=== PATIENT | female | born 1965 | race Caucasian/White ===

== ENCOUNTER 2020-08-12 08:09 | Emergency (ER) | payer BC, SELFPAY ==
--- NOTE | 2020-08-12 08:15 | RT.EKG_ITS ---
APPROVED REPORT Exam: Resting ECG Patient Location: E HR:84 bpm ECG Measurements Heart Rate 84 AXIS KS 145 P 75 QRSd 77 QRS 12 QT 366 T 70 QTc 433 Conclusion Sinus rhythm...normal P axis, V-rate 60- 99 I have reviewed and interpreted ECG and agree with software generated interpretation.
[2020-08-12 08:19] VITALS: BP 110/80; PULSE 107; RESP 16; TEMP 36.6; O2SAT 98
--- NOTE | 2020-08-12 08:30 | DI.CT_ITS ---
EXAM: CT ABDOMEN PELVIS W CLINICAL HISTORY: abdominal pain, vomiting, nausea TECHNIQUE: Imaging Protocol: Axial computed tomography images with coronal and sagittal reformatted images were created and reviewed CONTRAST MATERIAL: Intravenous: Omnipaque 350 Contrast volume:100 mL Oral: No COMPARISON: No exams were available for comparison FINDINGS: ABDOMEN: Lung Bases: Normal where visualized. Small hiatal hernia. Liver: Normal density. No measurable mass. Portal, Superior Mesenteric, and Splenic Veins: Unremarkable. Gallbladder and Biliary Tract: No radiodense calculus or dilation. Pancreas: Normal density, no abnormal calcifications or inflammatory process. Spleen: Normal. Adrenals: No masses seen. Kidneys: Normal size, contour and axis. No radiodense stones or obstructive uropathy. No masses seen. Abdominal Aorta: Abdominal portion non-dilated. Mild atherosclerosis. Bowel: No obstruction or bowel wall thickening. No appendicitis. Diverticulosis throughout the colon but no evidence of acute diverticulitis. Peritoneal Cavity: No ascites, collection or mesenteric inflammatory response. No free air. Lymph Nodes: Within normal limits. Bones: Within normal limits for the patient's age. Soft Tissues: Unremarkable. PELVIS: Bladder: Symmetric distention, no gross wall thickening. Reproductive Organs: The uterus is enlarged and heterogeneous with multiple masses including some of which are calcified consistent with fibroid uterus. Lymph Nodes: Within normal limits. Bones: Within normal limits for the patient's age. IMPRESSION: 1. No acute abdominal or pelvic process. 2. Enlarged fibroid uterus. 3. Colonic diverticulosis but no evidence of acute diverticulitis. 4. Results of this exam have been verbally communicated with provider. RADIATION DOSE DELIVERED: 1,221.29mGy.cm Total DLP DATA REPOSITORY: All CT scans at this facility are submitted to the National Radiology Data Registry (NRDR) Dose Index Registry (DIR) with the [employer] (A[employer]). RADIATION OPTIMIZATION: All CT scans at this facility use at least one of these dose optimization te chniques: automated exposure control; mA and/or kV adjustment per patient size (includes targeted exa ms where dose is matched to clinical indication); or iterative reconstruction.
--- NOTE | 2020-08-12 08:30 | NUR.NOTE ---
Nursing Note: Referral given to Care Management to get a PCP to establish care. Katey Mcclulough
--- NOTE | 2020-08-12 08:43 | ED.GENADUL_ITS ---
Discharge Plan Disposition Patient Disposition: HOME Condition: Good Discharge Details Clinical Impression: Nausea & vomiting Primary Care Provider: None,None ED Provider: Phylicia Francisco Home Meds and New Rx's Prescriptions: New omeprazole magnesium [Prilosec OTC] 20 mg tablet,delayed release (DR/EC) 20 mg PO DAILY Qty: 60 RF: 0 ondansetron HCl [Zofran] 4 mg tablet 4 mg PO Q8H Qty: 14 RF: 0 promethazine 25 mg suppository 25 mg [place] Q4H Qty: 12 RF: 0 Discharge Instructions Instructions: Acute Nausea and Vomiting (ED) Additional Instructions: Take Zofran as needed for nausea and vomiting at You may try taking a Phenergan suppository if your symptoms are unrelieved with Zofran orally Take Prilosec daily if helps with your symptoms, I have given you a 30-day supply Please establish care with primary care physician, we have placed you on a referral try to stay away from caffeine, fatty, and spicy foods Please return earlier should you have new or worsening complaints Medical Decision Making Patient is alert and oriented, she did have a CT scan per radiology does not show acute abnormality Her diagnostic labs do not show acute pathology Feeling symptomatically improved able to tolerate p.o. She was placed on care management list for follow-up with primary care physician She started on Prilosec, Zofran, and Phenergan suppository should she need additional management We talked about diet and return precautions She may need outpatient endoscopy and GI consultation at the discretion of her provider At this time she is stable for discharge home, she is alert, oriented, of decisional capacity Lipase within normal limits, no evidence of acute cholecystitis on CT scan or labs suspicious for this etiology Differential Diagnosis Differential Diagnosis: Pancreatitis, cholecystitis, electrolyte abnormality, ulcer Medical Records Medical records reviewed: Yes I reviewed the patient's medical records. Lab Data Lab results reviewed: Yes I reviewed the patient's lab results. HPI This 55-year-old female presents with reports of food induced nausea and vomiting intermittently for the past several months. She states that is intermittent and typically occurs in bouts. She denies any blood in vomitus or stool. She does not have associated diarrhea. Her stool is normally formed and brown. 1 episode of vomiting this morning. 15 episodes of vomiting last evening reportedly. She denies any associated abdominal pain, fever, chills. She denies any weight loss or night sweats. She does not smoke, drink alcohol on a regular basis, or take any prescribed medications. She has recently relocated from [place]. She was not evaluated for the symptoms while she was in [place]. She denies cough or shortness of breath. She denies any chance of as she does have menopausal. She denies any prior abdominal surgeries. Patient also reports that she suffered nasal bone fractures while in [place] and saw plastic surgeon but they elected not to operate until she had healing. She is not able to breathe through her nose secondary to a deviated septum and is requesting that we supply a referral for ENT. She denies any difficulty swallowing. General Date/Time Provider Initiated Documentation: 08/12/20 08:15 . Related Data Home Medications Medication Instructions Recorded Confirmed omeprazole magnesium [Prilosec OTC] 20 mg PO DAILY #60 tab 08/12/20 ondansetron HCl [Zofran] 4 mg PO Q8H #14 tab 08/12/20 promethazine 25 mg OH Q4H #12 ea 08/12/20 Previous Rx's Medication Instructions Recorded omeprazole magnesium [Prilosec OTC] 20 mg PO DAILY #60 tab 08/12/20 ondansetron HCl [Zofran] 4 mg PO Q8H #14 tab 08/12/20 promethazine 25 mg OH Q4H #12 ea 08/12/20 Allergies Allergy/AdvReac Type Severity Reaction Status Date / Time cephalexin Allergy Skin Rash Unverified 08/12/20 08:25 nitrofurantoin Allergy Skin Rash Unverified 08/12/20 08:25 [From Macrobid] General Stated Complaint: Nausea/Vomit/Diar FRANCIS: 3 Review of Systems Narrative: Review of systems negative x7 aside from where indicated in HPI PFSH Social History Smoking/Tobacco Use Status: Never Smoking risk assessment performed?: Yes Alcohol Intake: current Alcohol Intake frequency: holidays/special occasions only Drug use: Occasionally Substance use type: marijuana Do you feel safe at home: Yes Do you feel safe in your relationship?: Yes Exam Const General: healthy appearing and comfortable HENMT Other: moist mucous membranes Eyes Pupils: PERRL Resp Effort & Inspection: normal respiratory effort Cardio Rate: regular rate GI Inspection: normal to inspection Other: Nontender abdominal exam, no CVA tenderness Skin General skin exam: no rashes or lesions noted Neuro General: patient alert Course Vital Signs Vital signs: Vital Signs Temperature 36.6 C 08/12/20 08:19 Pulse 107 H 08/12/20 08:19 Respiratory Rate 16 08/12/20 08:19 Blood Pressure 110/80 08/12/20 08:19 Pulse Oximetry 98 08/12/20 08:19 Temperature 36.6 C 08/12/20 08:19 Temperature Source Temporal Artery Scan 08/12/20 08:19 Pulse 107 H 08/12/20 08:19 Respiratory Rate 16 08/12/20 08:19 Respiratory Effort Non-Labored 08/12/20 08:23 Blood Pressure 110/80 08/12/20 08:19 Blood Pressure Position Sitting 08/12/20 08:19 Pulse Oximetry 98 08/12/20 08:19 Oxygen Delivery Method Room Air 08/12/20 08:19 Oxygen Flow Rate 0 08/12/20 08:19 Pain Level 0 08/12/20 08:19
[2020-08-12] MEDS: Normal Saline 1,000 ML 1000 ML IV (08:54)
[2020-08-12] MEDS: Ondansetron 4 MG/2 ML VIAL IVP ×2 (08:54→10:43)
[2020-08-12 08:55] LABS: Abs Immature Grans 0.01 10^3/uL (0.0-0.06); Absolute Basophil Count 0.03 10^3/uL (0.0-0.2); Absolute Eosinophil Count 0.07 10^3/uL (0.0-0.7); Absolute Lymphocyte Count 2.17 10^3/uL (1.2-3.4); Absolute Monocyte Count 0.49 10^3/uL (0.1-0.8); Absolute Neutrophil Count 3.63 10^3/uL (1.2-6.7); Basophils % 0.5; Eosinophils % 1.1; HGB 15.6 g/dL (11.2-15.7); Immature Grans % 0.2; Lymphocytes % 33.9; MCH 30.2 pg (27.0-33.0); MCHC 34.7 % (32.0-36.0); MCV 87.2 fL (80-95); MPV 9.5 fL (8.0-11.0); Monocytes % 7.7; Neutrophils % 56.6; Nucleated RBC 0 %; Platelet Count 233 10^3/uL (130-400); RBC 5.16 10^6/uL (3.93-5.22); RDW 12.2 % (11.7-14.6); RDW-SD 39.3 fL
[2020-08-12 09:09] LABS: ALT 37 U/L (14-59); AST 23 U/L (15-37); Albumin 4.2 g/dL (3.4-5.0); Alkaline Phosphatase 63 U/L (46-116); Anion Gap 10.2 mmol/L (3-11); BUN 18 mg/dL (7-18); Bilirubin, Total 0.5 mg/dL (0.2-1.0); CO2 27.8 mmol/L (21.0-32.0); CREATININE 0.8 mg/dL (0.55-1.02); Calcium 9.7 mg/dL (8.5-10.1); Chloride 103 mmol/L (98-107); Glucose 94 mg/dL (74-106); Lipase 96 U/L (73-393); Magnesium 2.1 mg/dL (1.8-2.4); Potassium 3.9 mmol/L (3.5-5.1); Sodium 141 mmol/L (136-145); Total Protein 8.7 g/dL (6.4-8.2)
[2020-08-12] MEDS: Omnipaque 350 MG/ML 100 ML BTL IJ (10:07)
[2020-08-12] MEDS: Normal Saline Flush 10 ML SYR IVP (10:08)
[2020-08-12 10:58] VITALS: BP 129/70; PULSE 83; RESP 20; TEMP 36.4; O2SAT 100
--- NOTE | 2020-08-12 19:29 | PDOC.ERCMPRO ---
- If Service Date Differs Date of service: 08/12/20 Time of Service: 19:29 Care Management Progress Note Amy is seen in the ED for abdominal pain. At the request of ED provider, NARGIS coordinates a referral to aPlmira Green of [facility], on-call provider, to assist Amy in obtaining a follow up appointment and in establishing care with a PCP.
== END 2020-08-12 11:10 | disposition home or self-care (01) ==
PROVIDERS: Emergency Provider Physician Assistant
DX: R11.2 Nausea with vomiting, unspecified (principal)
CPT/HCPCS: 36415; 80053; 83690; 93005; 96361; 96374; 96376; 99285; 74177; 83735; 85025; 93010; 99284; J2405; J3490

== ENCOUNTER 2020-08-20 18:24 | Outpatient (REF) | payer BC, SELFPAY ==
[2020-08-20 20:22] LABS: Hemoglobin A1C 5.2 % (<5.7)
[2020-08-20 20:31] LABS: TSH (W/Ref FT4) 3.49 uIU/mL (0.36-3.74)
== END 2020-08-20 18:25 | disposition home or self-care (01) ==
LOC: NCHCN 18:24
PROVIDERS: Visit Provider Physician Assistant Medical
DX: R11.2 Nausea with vomiting, unspecified (principal)
CPT/HCPCS: 83036; 84443

== ENCOUNTER 2020-09-10 03:22 | Outpatient (CLI) | payer BC, SELFPAY ==
--- NOTE | 2020-09-10 | DI.MAMMO_ITS ---
EXAM: MG MAMMO SCREENING CLINICAL HISTORY: SCREENING, [facility],Z00.00 TECHNIQUE: Bilateral full field digital CC and MLO mammographic images were obtained with 3D tomosyn thesis and utilizing computer aided detection (CAD). COMPARISON: Available for comparison. FINDINGS: Masses/Architectural Distortion: None seen. Microcalcifications: No suspicious pleomorphic-type are seen. Skin Thickening/Nipple Retraction: None. IMPRESSION: 1. No significant interval change with no specific features of malignancy noted. 2. Unless there is more urgent need, screening mammography is recommended, as per [employer] guidelines. BI-RADS Category 1 - Negative Breast Density - Category C - Heterogeneously dense Breast density category C or D implies that the patient has dense breast tissue. Dense breast tissue is very common and is not abnormal but dense breast tissue can make it harder to find cancer on a ma mmogram. Also, dense breast tissue may increase their breast cancer risk. This information about the result of the mammogram report was provided to the patient to raise their awareness. Use this report when you speak with the patient about their risks for breast cancer, which includes their family hist ory. At that time, you may recommend for more screening tests (Ultrasound or MRI) as they might be us eful based on their risk. A negative radiographic report should not delay biopsy if a dominant or clinically suspicious mass is present. Up to ten percent of cancers are not identified on mammography. A negative report may reinforce clinical impression. Adenosis and dense breasts may obscure an underlying neoplasm. False positive reports average 6 to 10%. Patient will receive a letter notifying them of these results.
== END 2020-09-10 03:42 ==
PROVIDERS: PCP Physician Assistant Medical; Visit Provider Physician Assistant Medical
DX: Z12.31 Encounter for screening mammogram for malignant neoplasm of breast (principal); Z00.00 Encounter for general adult medical examination without abnormal findings
CPT/HCPCS: 77063; 77067

== ENCOUNTER 2020-10-11 03:06 | Outpatient (CLI) | payer BC, SELFPAY ==
[2020-10-11 10:23] LABS: Source Nasal/Nares
[2020-10-11 12:28] LABS: COVID-19 PCR Negative (Negative)
== END 2020-10-11 03:07 | disposition home or self-care (01) ==
LOC: LBO 03:07
PROVIDERS: PCP Physician Assistant Medical; Visit Provider Surgery
DX: Z20.822 Contact with and (suspected) exposure to COVID-19 (principal); Z01.818 Encounter for other preprocedural examination
CPT/HCPCS: 87635

== ENCOUNTER 2020-10-13 11:25 | Day surgery (SDC) | payer BC, SELFPAY ==
[2020-10-13] VITALS (11 sets, daily range): BP systolic 118–150; BP diastolic 44–85; PULSE 45–75; RESP 14–18; TEMP 35.9–36.2; O2SAT 95–100; BMI 29.9
--- NOTE | 2020-10-13 06:53 | ROE_ITS ---
Date of service: 10/13/20 Time of Service: 15:26 Operative Note Operative Note DATE OF PROCEDURE: 10/13/20 PRE-OP DIAGNOSIS: Acalculous Cholecystitis POST-OP DIAGNOSIS: same PROCEDURE: Laparoscopic Cholecystectomy SURGEON: Christi Grajeda ARTIFICIAL INTELLIGENCE SPECIALIST: Caitlyn Rizvi ANESTHESIA TYPE: Local By Surgeon and General LMA/ETT Refer to Anesthesia Record ESTIMATED BLOOD LOSS: 50 PATHOLOGY: other (Gallbladder and contecnts) COMPLICATIONS: None Patient was transported to: PACU Patient's condition: stable Indications: Ms. Denton is a pleasant 55-year-old female who for the last few months has been having increasing nausea, vomiting and periodic episodes of right upper quadrant pain which radiate to her back and right shoulder. She underwent EGD which was unremarkable. CT scan which were read as normal although on my review I do think that she may have some sludge in there. HIDA scan was then ordered which was normal with an ejection fracture of 68%. She is scheduled for an ultrasound tomorrow. I discussed with the patient that clinically she probably has a calculus cholecystitis. I would like her to still go ahead with her ultrasound but I think giving her symptoms and her weight loss her gallbladder does need to be removed. I did tell her that if her ultrasound is negative I cannot guarantee that removing her gallbladder will take care of her symptoms. She understands this and still would like to proceed with laparoscopic cholecystectomy. We discussed the surgery in detail using a pamphlet. I went over the risks and complications. We reviewed reasons to go from laparoscopic to open cholecystectomy. We reviewed reasons for which I would admit her after surgery. If all goes well the plan is for her to go home. We also reviewed Covid testing prior to the procedure as well as quarantining test and her surgery. She works from home so this will not be an issue. The patient also mentions kulwinder t she has quite a bit of postoperative nausea. I have prescribed scopolamine patch. I have asked her to place this behind her ear the night before surgery to hopefully help with postoperative nausea. The patient will be having her second Covid vaccine this coming Sunday. Surgery is scheduled for the following Sunday. I did discuss this with anesthesia and they do not see a reason that she cannot have her surgery after her second vaccine. Risks, benefits, complications were reviewed with the patient in the office. Complications include but are not limited to bleeding, infection, injury to stomach, small bowel and large bowel, injury to the pancreas, injury to the common bile duct necessitating drainage and referral to tertiary center for repair, bile leak, adverse reactions to the medications, complications of intubation including a sore throat or injury to the uvula, PR, stroke and even . Questions were entertained and answered to her satisfaction and she wished to proceed. No guarantees were given or implied. COVID-19 testing explained to the patient. Reason for test reviewed. Quarantine per state requirements reviewed with patient. Patient understands and agrees to testing. Proceed with laparoscopic cholecystectomy, possible open, possible intraoperative cholangiogram Findings: Normal appearing Gallbladder Procedure Description: After informed consent was obtained the patient was brought to the operating room, placed in a supine position and monitors were a pplied. SCDs were applied to her lower extremities and she was placed under general anesthesia and intubated without difficulty. Her abdomen was then prepped and draped in a sterile fashion using ChloraPrep. At this point a timeout was done and the patient's name, date of , procedure type, allergies to medications, metal in her body, antibiotic and DVT prophylaxis, and fire risk was assessed. At this point Exparel mixed 50/50 with 0.25% Bupivocaine was injected just above the umbilicus into the dermis and subcutaneous tissue. A 5 mm incision was made with an 11 blade. The skin next to the incision was grasped with penetrating towel clamps and while pulling up on the skin a 5 mm port was placed under direct visualization. The abdomen was insuflated and then 3 more ports were placed. A 12 mm port was placed in the subxiphoid area and two 5 mm ports were placed in the right upper quadrant. The liver was inspected and looked normal. The patient's bed was then turned to the left and her head was brought up. The gallbladder was grasped at the body and pushed towards the right shoulder, this allowed me to visualize the neck of the gallbladder. The neck was grasped and pulled towards the right flank and down allowing me to visualize the lymph node. Using a [place] dissector with cautery the lymph node was gently dissected away from the tissues and the fatty tissue was also dissected away. The cystic duct was identified it was normal in size. The duct was dissected 360 degrees using the [place] dissector in order for me to visualize its entrance into the gallbladder. Liver was noted behind it. There were no other structures right behind. Critical view was achieved. 3 clips were placed one proximal and 2 distal and the cystic duct was cut. The cystic artery was then identified and dissected 360 degrees. It was located just medial to the cystic duct. It was visualized going into the gallbladder. Once dissected 3 more clips were placed one proximal and 2 distal and the artery was cut. Using the hook dissector the gallbladder was then dissected away from the liver bed and placed into an Endo Catch bag and pulled through the 12 mm port site. The 12 mm port was placed back into the abdomen under direct visualization. The liver bed was inspected no bleeding was noted. The abdomen was then irrigated with a liter of normal saline until the effluent was clear. Once all the fluid was suctioned out, the 12 mm and the 2 right upper quadrant ports were removed under direct visualization and no bleeding was noted from the fascia. The abdo men was deflated completely and lastly the umbilical port was removed. The skin was cleaned and the incisions were closed with 4-0 Vicryl. The skin was dried and mastasol and steri-strips were applied over the closed incisions. 4x4 and tegaderm were then applied over the steri-strips. Needle, instrument and sponge counts were correct at the end of the case. At this point the patient was woken up, extubated and taken back to recovery in stable condition. There were no immediate complications.
--- NOTE | 2020-10-13 06:55 | PDOC.DSDIS_ITS ---
Discharge Plan Disposition Patient Disposition: HOME Condition: Good Discharge Details Reason For Visit: Acalculous cholecystitis Attending Provider: Christi Grajeda Primary Care Provider: Thierry Jane Home Meds and New Rx's Prescriptions: Continued scopolamine base 1 mg over 3 days patch 3 day 1 patch transdermal Q3D PRN (Reason: nausea and vomiting) Qty: 1 RF: 0 omeprazole magnesium [Prilosec OTC] 20 mg tablet,delayed release (DR/EC) 20 mg PO DAILY Qty: 60 RF: 0 ondansetron HCl [Zofran] 4 mg tablet 4 mg PO Q8H Qty: 14 RF: 0 promethazine 25 mg suppository 25 mg [place] Q4H Qty: 12 RF: 0 Discharge Instructions Instructions: Laparoscopic Cholecystectomy (DC) Additional Instructions: Activity at Home after surgery: 1. Make sure you walk outside at least 4 times per day 2. You should be able to climb a flight of stairs 3. No driving while in pain or taking pain medications 4. No strenuous activity or heavy lifting for 2 weeks (laparoscopic surgery) Diet, Nutrition, & wound healin. Avoid alcohol until after you are recovered from your surgery 2. Make sure to eat plenty of lean protein (meat, fish, eggs, cottage cheese, beans) 3. Eat a variety of fruits and vegetables. Eat plenty of high fiber f oods to avoid constipation. 4. Drink plenty of liquids to stay hydrated and avoid constipation Pain Medications: 1. Tylenol 650mg every 6 hours as needed and Ibuprofen 600 mg every 6 hours as needed. You may alternate between the 2 medications every 3 hours 2. If a narcotic has been prescribed take as directed only for breakthrough pain For Constipation: 1. Take Milk of Magnesia or MiraLax as needed for constipation Other: 1. You may shower daily. Do not scrub the incisions 2. Do not soak the incisions for 1 week 3. You may alternate ice and heat as needed for pain and swelling Wound Care: 1. Keep the incisions clean and dry Please call our office if you develop: 1. Fevers >101.5 2. Nausea or Vomiting 3. Worsening pain 4. Redness and thick discharge from the wounds If after hours please call the Hospital at and ask to speak to the on-call surgeon Referrals: Christi Grajeda MD [ [facility] STAFF PHYSICIAN] - 10/26/20 11:00 am Activity:: Activity as Tolerated Shower/Bathe:: 24 hours Diet:: As Tolerated Discharge Orders Discharge Orders: Discharge Order (Routine); Ordered 10/13/20 Ordered By: Christi Grajeda
[2020-10-13] MEDS: Lactated Ringers 1,000 ML 80 ML IV (12:12)
[2020-10-13] MEDS: Celecoxib 200 MG CAP PO (12:23)
[2020-10-13] MEDS: Acetaminophen 500 MG TAB 1000 MG PO (12:23)
--- NOTE | 2020-10-13 12:45 | W.ANESPRE ---
General Info Date of Service Date Performed: 10/13/20 Height: 5 ft 7 in Weight: 86.6 kg Body Mass Index (BMI): 29.9 Surgical Procedure: Operation Date: 10/13/20 13:25 Proposed Procedures Side Surgeon p Cholecystectomy Laparoscopic Christi Grajeda MD Meds Allergies and Home Medications Allergies Allergy/AdvReac Type Severity Reaction Status Date / Time cephalexin Allergy Severe Skin Rash Unverified 10/13/20 11:45 nitrofurantoin Allergy Severe Skin Rash Unverified 10/13/20 11:45 [From Macrobid] Home Medication Medication Instructions Recorded omeprazole magnesium [Prilosec OTC] 20 mg PO DAILY #60 tab 08/12/20 ondansetron HCl [Zofran] 4 mg PO Q8H #14 tab 08/12/20 promethazine 25 mg VT Q4H #12 ea 08/12/20 scopolamine base 1 mg over 3 days 1 patch TRANSDERMAL Q3D PRN #1 ea 10/05/20 transdermal patch Current Visit Medications: Current Medications Generic Name Dose Route Start Last Admin Trade Name Elq PRN Reason Stop Dose Admin Acetaminophen 1,000 mg 10/13/20 06:00 10/13/20 12:23 Acetaminophen 500 Mg Tab PO 10/13/20 16:00 1,000 mg PREOP VIANNEY Administration Celecoxib 200 mg 10/13/20 06:00 10/13/20 12:23 Celecoxib 200 Mg Cap PO 10/13/20 16:00 200 mg PREOP VIANNEY Administration Ephedrine Sulfate 0 mg 10/13/20 12:41 Ephedrine 50 Mg/Ml Vial IVP DIRECTED PRN Fentanyl 0 mcg 10/13/20 12:41 Fentanyl 100 Mcg/2 Ml Vial IVP DIRECTED PRN Hydromorphone HCl 0 mg 10/13/20 12:41 Hydromorphone 2 Mg/Ml Vial IVP DIRECTED PRN Ringer's Solution 1,000 mls @ 80 mls/hr 10/13/20 06:00 10/13/20 12:12 IV 11/11/20 23:59 80 mls/hr INFUSION VIANNEY Administration Ampicillin Sodium/Sulbactam 100 mls @ 200 mls/hr 10/13/20 06:00 Sodium 3 gm/ Sodium Chloride IVPB 10/13/20 16:00 PREOP VIANNEY Ondansetron HCl 4 mg/ Sodium 52 mls @ 200 mls/hr 10/13/20 06:56 Chloride IVPB Q6H PRN PRN Promethazine HCl 6.25 mg/ 50.25 mls @ 200 mls/hr 10/13/20 12:41 Sodium Chloride IVPB DIRECTED PRN Nausea IV Miscellaneous Supplies 1 each 10/13/20 06:00 Iv Access IV 11/11/20 23:59 DIRECTED VIANNEY Naloxone HCl 0 mg 10/13/20 12:41 Naloxone 0.4 Mg/Ml Vial IVP PRN PRN Oxycodone HCl 5 mg 10/13/20 06:56 Oxycodone 5 Mg Tab PO Q3H PRN PRN Pain Sodium Chloride 0 ml 10/13/20 06:00 Normal Saline Flush 10 Ml Syr IV 11/11/20 23:59 PRN PRN Sodium Chloride 0 ml 10/13/20 06:00 Normal Saline 10 Ml Vial IJ 11/11/20 23:59 DIRECTED PRN Sterile Water 0 ml 10/13/20 06:00 Water,Injection,Sterile 10 Ml Vial IJ 11/11/20 23:59 DIRECTED PRN PFSH Active Problems Active Problems: Problem Status Onset Code Acalculous cholecystitis K81.9 RUQ pain R10.11 Nausea & vomiting R11.2 Medical History Medical History Deviated nasal septum Diverticulosis Hypertrophy of inferior nasal turbinate ZO (obstructive sleep apnea) Uterine fibroid Medical History Comments:: No CPAP Surgical History Surgical History H/O esophagogastroduodenoscopy History of arthroscopy of both knees History of bilateral breast reduction surgery History of total right knee replacement Tobacco Smoking/Tobacco Use Status: Never Alcohol Alcohol Intake: current Alcohol intake frequency: holidays/special occasions only Substance Use Substance use: Occasionally Substance use type: marijuana Details: last used 3 months Vital Signs and Lab Results Vital Signs Most Recent Vital Signs in EMR: Most Recent Vital Signs Temp Pulse Resp BP Pulse Ox 36.1 C L 75 18 124/79 95 10/13/20 11:47 10/13/20 11:47 10/13/20 11:47 10/13/20 11:47 10/13/20 11:47 Lab Results Blood Type / Crossmatch: No Data to Display Complete Blood Count: White Blood Count 6.40 10^3/uL (4.4-10.8) 08/12/20 08:48 08/12/20 Red Blood Count 5.16 10^6/uL (3.93-5.22) 08/12/20 08:48 08/12/20 Hemoglobin 15.6 g/dL (11.2-15.7) 08/12/20 08:48 08/12/20 Hematocrit 45.0 % (36.0-46.0) 08/12/20 08:48 08/12/20 Platelet Count 233 10^3/uL (130-400) 08/12/20 08:48 08/12/20 Complete Metabolic Panel: Sodium Level 141 mmol/L (136-145) 08/12/20 08:48 08/12/20 Potassium Level 3.9 mmol/L (3.5-5.1) 08/12/20 08:48 08/12/20 Chloride Level 103 mmol/L (98-107) 08/12/20 08:48 08/12/20 Carbon Dioxide Level 27.8 mmol/L (21.0-32.0) 08/12/20 08:48 08/12/20 Blood Urea Nitrogen 18 mg/dL (7-18) 08/12/20 08:48 08/12/20 Creatinine 0.8 mg/dL (0.55-1.02) 08/12/20 08:48 08/12/20 Magnesium Level 2.1 mg/dL (1.8-2.4) 08/12/20 08:48 08/12/20 Calcium Level 9.7 mg/dL (8.5-10.1) 08/12/20 08:48 08/12/20 Albumin 4.2 g/dL (3.4-5.0) 08/12/20 08:48 08/12/20 Glucose Level 94 mg/dL (74-106) 08/12/20 08:48 08/12/20 Hemoglobin A1c 5.2 % (<5.7) 08/20/20 12:30 08/20/20 Liver Function Panel: Alanine Aminotransferase (ALT/SGPT) 37 U/L (14-59) 08/12/20 08:48 08/12/20 Aspartate Amino Transf (AST/SGOT) 23 U/L (15-37) 08/12/20 08:48 08/12/20 Coagulation Panel: No Data to Display Cardiac Panel: No Data to Display Arterial Blood Gas: No Data to Display Venous Blood Gas: No Data to Display Pancreas Panel: Lipase 96 U/L (73-393) 08/12/20 08:48 08/12/20 Thyroid Panel: Thyroid Stimulating Hormone (TSH) 3.49 uIU/mL (0.36-3.74) 08/20/20 12:30 08/20/20 Infectious Disease: Coronavirus (COVID-19)(PCR) Negative (Negative) 10/11/20 08:40 10/11/20 Coronavirus 2019 Source Nasal/nares 10/11/20 08:40 10/11/20 Blood Cultures: No Data to Display Toxicology Panel: No Data to Display Imaging and Studies Imaging and Studies EKG Summary:: 08/12/20 SR Anesthesia Assessment and Plan Anesthesia History Personal History: PONV (Scopolamine patch ordered by physician, applied last night) Family History: No Family History of Anesthesia Complications Exercise Tolerance Exercise Tolerance: Metabolic Equivalents>4 Cardiac & Pulmonary Exam Cardiac Exam: Normal S1/S2 Heart Sounds Pulmonary Exam: Clear Bilateral Breath Sounds Airway Exam Known Difficult Airway: No Mallampati Class: 2 Mouth Opening: Normal (> 3cm) Thyromental Distance: Less than 3 cm Neck Range of Motion: Full ROM Neck Circumference: Normal Teeth Condition: Normal Dentition ASA Classification ASA Score: ASA 2 Emergency Case?: No NPO Status NPO Status: NPO Clears >2 hours, Solids >8 hours Anesthesia Plan Anesthesia Technique: General Anesthesia Airway Planned: Endotracheal Tube Monitors Used: Standard Monitors
[2020-10-13] MEDS: AMPICILLIN/SULBACTAM 3 GM in Normal Saline 100 ML IVPB (13:22)
--- NOTE | 2020-10-13 13:46 | GB_PTH ---
PATIENT: Amy Velasquez LOC: [facility] U#:[id number] AGE/SX: 55/F ROOM: RE10/13/[address]: Christi Grajeda MD : 1965 BED: DIS: 10/13/2020 SPEC #: [id number] RECD: 10/13/20 16:07 STATUS: RADHIKA REMicha #: [id number] MONE: 10/13/20 13:[address]: Christi Grajeda DEPT: Surgical Specimen RECD BY: Phylicia Zamora ENTERED: 10/13/20 16:08 SP TYPE: GB OTHR DR: Thierry Jane Tissues: 1 - GALLBLADDER Procedures: GROSS AND MICRO LEVEL 3 Comments: [id number]
[2020-10-13] MEDS: Bupivacaine 0.25% Pres-Free 30 ML VIAL (14:05)
--- NOTE | 2020-10-13 16:36 | W.ANESPOSTOP ---
Postoperative Evaluation Date, Time and Location Date Performed: 10/13/20 Time Performed: 16:36 Patient Location: Day Surgery Unit Vital Signs Most Recent Imported Vital Signs: Most Recent Vital Signs Temp Pulse Resp BP Pulse Ox 35.9 C L 55 L 16 131/67 98 10/13/20 16:00 10/13/20 16:00 10/13/20 16:00 10/13/20 16:00 10/13/20 16:00 Pain Score Most Recent Pain Score: Most Recent Pain Score Pain Level 1 10/13/20 16:00 Assessment Mental Status: Awake (Alert & Oriented to Patient Baseline) Airway and Respiratory Function: Patent airway with normal (patient baseline) respiratory exam Cardiovascular Function: Hemodynamically Stable Hydration Status: Adequately Hydrated Nausea & Vomiting: No Nausea or Vomiting Pain: Pt. Denies Any Pain Peripheral Nerve Block: Patient did not receive a nerve block
== END 2020-10-13 17:38 | disposition home or self-care (01) ==
LOC: SUR 11:25
PROVIDERS: PCP Physician Assistant Medical; Visit Provider Surgery
PROC: 0FT44ZZ Resection of Gallbladder, Percutaneous Endoscopic Approach (ICD-10-PCS; CPT 47562; principal; 2020-10-13 13:15)
DX: K80.10 Calculus of gallbladder with chronic cholecystitis without obstruction (principal); K21.9 Gastro-esophageal reflux disease without esophagitis
CPT/HCPCS: 47562; 81025; 88304; J0295; J1100; J2001; J2405; J2704

== ENCOUNTER 2020-10-18 09:42 | Outpatient (REF) | payer BC, SELFPAY ==
[2020-10-18 15:35] LABS: Abs Immature Grans 0.01 10^3/uL (0.0-0.06); Absolute Basophil Count 0.03 10^3/uL (0.0-0.2); Absolute Eosinophil Count 0.15 10^3/uL (0.0-0.7); Absolute Lymphocyte Count 1.75 10^3/uL (1.2-3.4); Absolute Monocyte Count 0.45 10^3/uL (0.1-0.8); Absolute Neutrophil Count 3.03 10^3/uL (1.2-6.7); Basophils % 0.6; Eosinophils % 2.8; HCT 44.3 % (36.0-46.0); HGB 14.9 g/dL (11.2-15.7); Immature Grans % 0.2; Lymphocytes % 32.3; MCH 29.6 pg (27.0-33.0); MCHC 33.6 % (32.0-36.0); MCV 87.9 fL (80-95); MPV 10.5 fL (8.0-11.0); Monocytes % 8.3; Neutrophils % 55.8; Nucleated RBC 0 %; Platelet Count 232 10^3/uL (130-400); RBC 5.04 10^6/uL (3.93-5.22); RDW 12.3 % (11.7-14.6); RDW-SD 39.8 fL; WBC 5.42 10^3/uL (4.4-10.8)
[2020-10-18 16:15] LABS: ALT 76 U/L (14-59); AST 45 U/L (15-37); Albumin 4.2 g/dL (3.4-5.0); Alkaline Phosphatase 64 U/L (46-116); Anion Gap 9.6 mmol/L (3-11); BUN 17 mg/dL (7-18); Bilirubin, Total 0.6 mg/dL (0.2-1.0); CO2 29.4 mmol/L (21.0-32.0); CREATININE 0.7 mg/dL (0.55-1.02); Calcium 9.6 mg/dL (8.5-10.1); Chloride 106 mmol/L (98-107); Glucose 99 mg/dL (74-106); Potassium 4.8 mmol/L (3.5-5.1); Sodium 145 mmol/L (136-145); Total Protein 7.8 g/dL (6.4-8.2)
== END 2020-10-18 09:43 | disposition home or self-care (01) ==
LOC: NCHCN 09:42
PROVIDERS: PCP Physician Assistant Medical; Visit Provider Physician Assistant Medical
DX: R42 Dizziness and giddiness (principal)
CPT/HCPCS: 80053; 85025

== ENCOUNTER 2020-10-20 14:50 | Outpatient (REF) | payer BC, SELFPAY | END 2020-10-20 14:51 | disposition home or self-care (01) | LOC: NCHCN 14:50 | PROVIDERS: PCP Physician Assistant Medical; Visit Provider Physician Assistant Medical | DX: R30.9 Painful micturition, unspecified (principal) | CPT/HCPCS: 87077; 87086; 87186 ==

== ENCOUNTER 2020-10-25 11:53 | Outpatient (REF) | payer BC, SELFPAY ==
[2020-10-25 16:57] LABS: ALT 45 U/L (14-59); AST 31 U/L (15-37); Albumin 4.4 g/dL (3.4-5.0); Alkaline Phosphatase 65 U/L (46-116); Bilirubin, Direct 0.1 mg/dL (0.0-0.2); Bilirubin, Total 0.4 mg/dL (0.2-1.0); Total Protein 8.2 g/dL (6.4-8.2)
== END 2020-10-25 11:54 | disposition home or self-care (01) ==
LOC: NCHCN 11:53
PROVIDERS: PCP Physician Assistant Medical; Visit Provider Physician Assistant Medical
DX: R79.89 Other specified abnormal findings of blood chemistry (principal)
CPT/HCPCS: 80076

== ENCOUNTER 2020-10-28 09:26 | Emergency (ER) | payer BC, SELFPAY ==
[2020-10-28 09:29] VITALS: BP 125/79; PULSE 105; RESP 16; TEMP 36.8; O2SAT 98
--- NOTE | 2020-10-28 09:47 | W.ED.GENAD ---
Discharge Plan Disposition Patient Disposition: HOME Condition: Stable Discharge Details Clinical Impression: Dizziness, Nausea and vomiting, Acute effusion of right ear Primary Care Provider: Thierry Jane ED Provider: Kayla Lovell Home Meds and New Rx's Prescriptions: New prednisone 20 mg tablet 40 mg PO DAILY 3 Days Qty: 6 RF: 0 meclizine 12.5 mg tablet 12.5 mg PO TID PRN (Reason: dizziness) Qty: 14 RF: 0 Continued omeprazole magnesium [Prilosec OTC] 20 mg tablet,delayed release (DR/EC) 20 mg PO DAILY Qty: 60 RF: 0 ondansetron HCl [Zofran] 4 mg tablet 4 mg PO Q8H Qty: 14 RF: 0 promethazine 25 mg suppository 25 mg NH Q4H Qty: 12 RF: 0 Discharge Instructions Instructions: Ear Infection (ED), Acute Nausea and Vomiting (ED), Dizziness (ED) Additional Instructions: Drink plenty of fluids and get plenty of rest. Alternate tylenol and motrin as needed and directed for pain. Finish your Bactrim that you are taking for your urinary tract infection. You can take either your Zofran or your Phenergan that you have at home for nausea and vomiting. Your prescriptions have been sent electronically to your pharmacy. Call the pharmacy to make sure your prescriptions are ready before pickup. Take the prescriptions as directed. Call Dr. Patel's office today to have a discussion regarding your planned upcoming surgery and to follow-up for your right ear effusion. Call your pet supplies salesperson at [facility] to schedule a follow-up appointment for reevaluation. Also call Dr. Grajeda's office to schedule a follow-up appointment for reevaluation after your gallbladder surgery. Return immediately to the emergency department if you develop any worsening or new concerning symptoms. Referrals: Brendan Patel DO [OSTEOPATHIC DOCTOR] - Christi Grajeda MD [ [facility] STAFF PHYSICIAN] - Discharge Data Discharge Physician: Kayla Lovell Medical Decision Making 55-year-old female who is 2 weeks status post lap nicki for acalculus cholecystitis presents for dizziness, nausea and vomiting since last night. She has had chronic dizziness and vomiting for the past 7 months. She states she has been doing well since her surgery until last night. Denies fever. She is hemodynamically stable and appears comfortable and nontoxic. She does state that she had severe right ear pain last week. She does have fluid behind her right TM but no erythema. She has no complaint of headache, focal deficits, and history and presentation does not appear consistent with CVA, brain tumor or ACS. As she reports she had a CT brain in June in [place] which was negative, and her presentation has not significantly changed since then, do not see an indication for repeat head and imaging. She is also on Bactrim for UTI. She denies any complaint of abdominal pain but has minimal epigastric tenderness. She has no right upper quadrant tenderness. I discussed at length with patient that her symptom presentation could be related to antibiotics or ear effusion, or multifactorial. An IV, screening labs, urinalysis ordered on arrival. Labs reviewed. White blood cell count 6. Normal electrolytes, liver function and bilirubin. Normal lipase. As patient has no complaint of abdominal pain, is nontoxic appearing and with normal white blood cell count and no significant abdominal tenderness, do not see indication for CT imaging. Case discussed with surgery on-call Dr. Nicole who recommended a right upper quadrant ultrasound to assess the gallbladder bed and a GI cocktail. Patient was also given fluids, meclizine and Zofran. Will reassess. Gallbladder ultrasound negative for acute findings. Patient reassessed and she feels better. She was able to drink fluids and eat crackers without any vomiting. Patient states she feels good to go home. She has a prescription for Phenergan at home but is requesting some to go. She has an appointment for a deviated septum repair next week but is planning to reschedule this. We will send prescriptions for meclizine and prednisone to her pharmacy. Advised to call Nancy LEE and Dr. Grajeda for follow-up. Usual and customary return precautions given prior to discharge. Medical Records Medical records reviewed: Yes I reviewed the patient's medical records. Imaging Data Radiologic Study: Radiologist's impression: US ABDOMEN LIMITED CLINICAL HISTORY:? RUQ, assess gallbladder bed, 2 wks s/p lap nicki TECHNIQUE:? Ultrasound abdomen performed using standard protocol. COMPARISON:? US US ABDOMEN from 10/06/2020 FINDINGS: There is no ascites evident. LIVER: There are no hepatic lesions evident nor dilatation of intrahepatic ducts. GALLBLADDER/BILIARY: Gallbladder surgically absent (2 weeks ago). The common hepatic duct isnot dilated, measuring 3-4mm at the level of mily hepatis.? There is no obvious fluid collection in the gallbladder fossa. PANCREAS: There is no evidence of pancreatic mass nor dilatation of the pancreatic duct. RIGHT KIDNEY:No evidence of solid mass, calculus, nor hydronephrosis. No cortical cysts evident. ABDOMINAL AORTA AND IVC: Visualized portions exhibit normal caliber. IMPRESSION: 1.? No evidence of abnormal fluid collection in the gallbladder fossa in this patient who has had recent cholecystectomy, approximately 2 weeks ago. 2.? No other significant ultrasound findings in the right upper quadrant. 3.? No dilatation biliary tree.? Pancreas appears unremarkable. Lab Data Lab results reviewed: Yes I reviewed the patient's lab results. Labs: Laboratory Tests Range/Units 10/28/20 10/28/20 10/28/20 09:50 09:50 10:55 WBC (4.4-10.8) 10^3/uL 6.25 RBC (3.93-5.22) 10^6/uL 4.92 Hgb (11.2-15.7) g/dL 14.5 Hct (36.0-46.0) % 43.2 MCV (80-95) fL 87.8 MCH (27.0-33.0) pg 29.5 MCHC (32.0-36.0) % 33.6 RDW (11.7-14.6) % 12.6 Plt Count (130-400) 10^3/uL 233 MPV (8.0-11.0) fL 10.1 Immature Gran % 0.2 Neutrophils % 56.0 Lymphocytes % 34.4 Monocytes % 7.2 Eosinophils % 1.6 Basophils % 0.6 Nucleated RBC % % 0 Absolute Neutrophils (1.2-6.7) 10^3/uL 3.50 Absolute Lymphocytes (1.2-3.4) 10^3/uL 2.15 Absolute Monocytes (0.1-0.8) 10^3/uL 0.45 Absolute Eosinophils (0.0-0.7) 10^3/uL 0.10 Absolute Basophils (0.0-0.2) 10^3/uL 0.04 Sodium (136-145) mmol/L 143 Potassium (3.5-5.1) mmol/L 4.2 Chloride (98-107) mmol/L 105 Carbon Dioxide (21.0-32.0) mmol/L 31.3 Anion Gap (3-11) mmol/L 6.7 BUN (7-18) mg/dL 18 Creatinine (0.55-1.02) mg/dL 1.1 H Estimated GFR/1.73 m2 (mL/min/1.73m2) 51.38 Glucose (74-106) mg/dL 93 Calcium (8.5-10.1) mg/dL 9.7 Total Bilirubin (0.2-1.0) mg/dL 0.5 AST (15-37) U/L 25 ALT (14-59) U/L 43 Alkaline Phosphatase (46-116) U/L 67 Total Protein (6.4-8.2) g/dL 8.5 H Albumin (3.4-5.0) g/dL 4.3 Lipase (73-393) U/L 95 Urine Color (Yellow) Yellow Urine Clarity (Clear) Clear Urine pH (5-8) 7.0 Ur Specific [place] (1.005-1.025) 1.020 Urine Protein (Negative) mg/dL Negative Urine Ketones (Negative) mg/dL Negative Urine Blood (Negative) Trace-intact H Urine Nitrite (Negative) Negative Urine Bilirubin (Negative) Negative Urine Urobilinogen (Up TO 0.2) EU/dL 0.2 Ur Leukocyte Esterase (Negative) Negative Urine RBC (0-2) HPF 0-2 Urine WBC (0-5) HPF Negative Ur Epithelial Cells (Negative) HPF Few Urine Crystals (Negative) HPF Negative Urine Bacteria (Negative) HPF Few Urine Casts (Negative) LPF Negative Urine Mucus (Negative) Trace Urine Other (Negative) Negative Ur Culture Indicated? No Urine Glucose (Negative) mg/dL Negative HPI General Mode of arrival: ambulatory. Date/Time Provider Initiated Documentation: 10/28/20 09:29. Limitations to Documentation: no limitations. Information obtained by: patient. HPI Narrative: Patient is a 55-year-old female who is 2 weeks status post lap nicki presents for dizziness and vomiting since last night. Patient states she has had chronic dizziness and vomiting since April which has had extensive work-up and which ultimately led to finding gallbladder sludge and acalculous cholecystitis leading to her cholecystectomy. Patient states she had been doing well up until last night when she had multiple episodes of severe vomiting. She states the vomitus consisted of bile. She has been having normal bowel movements and denies any melena or hematochezia. She was able to take sips of water this morning. She last vomited at 10 PM last night. She states she is on her second regimen of Bactrim for a UTI. She states her primary care doctor put her on Bactrim for hematuria and suprapubic pressure but states when she followed up with them she was still noted to have blood in her urine and they started her on the second regimen of Bactrim. She denies any similar reaction to Bactrim in the past. She states she has been slowly introducing foods back into her diet over the last couple weeks but states she did not eat anything out of ordinary yesterday. She states her dizziness sometimes feels like a lightheaded sensation but is more often a spinning sensation. She states she has had a spinning sensation since last evening that is worse with head movement. She states last week she had sharp right-sided ear pain and is unsure if she has fluid in her right ear. She states she broke her nose in June and had a CT of her face and head which was negative. She was told that she has a deviated septum which is scheduled for repair with Dr. Patel next week. She denies fever, headache, chest pain, shortness of breath, abdominal pain, dysuria, urinary frequency. Related Data Home Medications Medication Instructions Recorded Confirmed omeprazole magnesium [Prilosec OTC] 20 mg PO DAILY #60 tab 08/12/20 10/28/20 ondansetron HCl [Zofran] 4 mg PO Q8H #14 tab 08/12/20 10/28/20 promethazine 25 mg NH Q4H #12 ea 08/12/20 10/26/20 meclizine 12.5 mg PO TID PRN #14 tab 10/28/20 prednisone 40 mg PO DAILY 3 Days #6 tab 10/28/20 Previous Rx's Medication Instructions Recorded omeprazole magnesium [Prilosec OTC] 20 mg PO DAILY #60 tab 08/12/20 ondansetron HCl [Zofran] 4 mg PO Q8H #14 tab 08/12/20 promethazine 25 mg NH Q4H #12 ea 08/12/20 meclizine 12.5 mg PO TID PRN #14 tab 10/28/20 prednisone 40 mg PO DAILY 3 Days #6 tab 10/28/20 Allergies Allergy/AdvReac Type Severity Reaction Status Date / Time cephalexin Allergy Severe Skin Rash Unverified 10/28/20 09:37 nitrofurantoin Allergy Severe Skin Rash Unverified 10/28/20 09:37 [From Macrobid] General Stated Complaint: Nausea/Vomit/Diar FRANCIS: 3 Review of Systems All systems reviewed & are unremarkable except as noted in HPI and below Constitutional Constitutional: Reports as per HPI, Denies chills and Denies fever(s) Eyes Eyes: Denies blurry vision ENT Ears, Nose, Mouth, and Throat: Reports dizziness, Denies sore throat and Denies throat swelling Cardiovascular Cardiovascular: Denies chest pain and Denies dyspnea Respiratory Respiratory: Denies cough and Denies dyspnea Gastrointestinal Gastrointestinal: Denies abdominal pain, Denies diarrhea and Reports vomiting Genitourinary Genitourinary: Denies hematuria and Denies dysuria Musculoskeletal Musculoskeletal: Denies back pain and Denies numbness Integumentary/Breasts Skin/Breast: Denies lesions and Denies rash Neurologic Neurologic: Reports dizziness, Denies localized weakness and Denies numbness Allergic/Immunologic Allergic/Immunologic: Denies throat swelling [facility] Medical History Deviated nasal septum Diverticulosis Hypertrophy of inferior nasal turbinate ZO (obstructive sleep apnea) Uterine fibroid Surgical History H/O esophagogastroduodenoscopy History of arthroscopy of both knees History of bilateral breast reduction surgery History of total right knee replacement Social History Smoking/Tobacco Use Status: Never Smoking risk assessment performed?: Yes Alcohol Intake: current Alcohol Intake frequency: holidays/special occasions only Drug use: Occasionally Substance use type: marijuana Details: last used 4 months Current gender identity: female Do you feel safe at home: Yes Do you feel safe in your relationship?: Yes Exam Const General: cooperative, healthy appearing and no acute distress HENMT Head: normal to inspection Ears: hearing grossly normal bilaterally, external ears normal and TM abnormal with fluid behind the TM on the right; not erythematous Face and sinus: normal facial exam Mouth: oral mucosae normal Eyes General: appearance normal, both eyes and all related structures Pupils: PERRL EOM: EOM intact bilaterally Neck Neck: normal visual inspection and No submandibular swelling Lymphatic: no lymphadenopathy noted Chest Chest: normal inspection of the chest and no tenderness Resp Effort & Inspection: normal respiratory effort and able to speak in complete sentences Auscultation: clear to auscultation bilaterally Cardio Rate: regular rate Rhythm: regular rhythm GI Inspection: normal to inspection Palpation: soft, not firm, not rigid and tender in the epigastrum (minimal w/ deep palpation) Auscultation: normal bowel sounds Back/Spine/Pelvis Thoracic/Lumbar Spine: thoracic and lumbar spine normal to inspection Pelvis: no pain with anterior-posterior compression Skin General skin exam: no rashes or lesions noted Neuro General: patient alert, patient awake, patient oriented x3, gait normal, moves all extremities, no meningeal signs and no focal motor deficits Cranial Nerves: CN's II-XI intact bilaterally Cognition: normal cognition Speech: speech normal Motor: muscle tone normal throughout and strength 5/5 throughout Sensory Exam: no sensory deficits noted Extrem General: normal to inspection, full ROM, capillary refill normal, no calf tenderness bilaterally and no edema Psych Appearance: grossly normal Mental Status: mental status grossly normal Speech and Movement: speech and movement normal Affect: normal affect Course Vital Signs Vital signs: Vital Signs Temperature 98.2 F 10/28/20 09:29 Pulse 105 H 10/28/20 09:29 Respiratory Rate 16 10/28/20 09:29 Blood Pressure 125/79 10/28/20 09:29 Pulse Oximetry 98 10/28/20 09:29 Temperature 98.2 F 10/28/20 09:29 Temperature Source Skin 10/28/20 09:29 Pulse 105 H 10/28/20 09:29 Respiratory Rate 16 10/28/20 09:29 Respiratory Effort 10/28/20 09:40 Blood Pressure 125/79 10/28/20 09:29 Blood Pressure Position Sitting 10/28/20 09:29 Pulse Oximetry 98 10/28/20 09:29 Oxygen Delivery Method Room Air 10/28/20 09:29 Oxygen Flow Rate 0 10/28/20 09:29 Pain Level 0 10/28/20 09:29
[2020-10-28] MEDS: Normal Saline Flush 10 ML SYR IVP (09:50)
[2020-10-28] MEDS: Normal Saline 500 ML IV ×2 (09:55→10:40)
[2020-10-28 10:14] LABS: Abs Immature Grans 0.01 10^3/uL (0.0-0.06); Absolute Basophil Count 0.04 10^3/uL (0.0-0.2); Absolute Lymphocyte Count 2.15 10^3/uL (1.2-3.4); Absolute Monocyte Count 0.45 10^3/uL (0.1-0.8); Basophils % 0.6; Eosinophils % 1.6; HCT 43.2 % (36.0-46.0); HGB 14.5 g/dL (11.2-15.7); Immature Grans % 0.2; Lymphocytes % 34.4; MCH 29.5 pg (27.0-33.0); MCHC 33.6 % (32.0-36.0); MCV 87.8 fL (80-95); MPV 10.1 fL (8.0-11.0); Monocytes % 7.2; Nucleated RBC 0 %; Platelet Count 233 10^3/uL (130-400); RBC 4.92 10^6/uL (3.93-5.22); RDW 12.6 % (11.7-14.6); RDW-SD 40.1 fL; WBC 6.25 10^3/uL (4.4-10.8)
[2020-10-28 10:19] LABS: ALT 43 U/L (14-59); AST 25 U/L (15-37); Albumin 4.3 g/dL (3.4-5.0); Alkaline Phosphatase 67 U/L (46-116); Anion Gap 6.7 mmol/L (3-11); BUN 18 mg/dL (7-18); Bilirubin, Total 0.5 mg/dL (0.2-1.0); CO2 31.3 mmol/L (21.0-32.0); CREATININE 1.1 mg/dL (0.55-1.02); Calcium 9.7 mg/dL (8.5-10.1); Chloride 105 mmol/L (98-107); Estimated GFR 51.38 (mL/min/1.73m2); Glucose 93 mg/dL (74-106); Lipase 95 U/L (73-393); Potassium 4.2 mmol/L (3.5-5.1); Sodium 143 mmol/L (136-145); Total Protein 8.5 g/dL (6.4-8.2)
--- NOTE | 2020-10-28 10:30 | DI.US_ITS ---
Exam(s) US ABDOMEN LIMITED EXAM: US ABDOMEN LIMITED CLINICAL HISTORY: RUQ, assess gallbladder bed, 2 wks s/p lap nicki TECHNIQUE: Ultrasound abdomen performed using standard protocol. COMPARISON: US US ABDOMEN from 10/06/2020 FINDINGS: There is no ascites evident. LIVER: There are no hepatic lesions evident nor dilatation of intrahepatic ducts. GALLBLADDER/BILIARY: Gallbladder surgically absent (2 weeks ago). The common hepatic duct isnot dilated, measuring 3-4mm at the level of mily hepatis. There is no ob vious fluid collection in the gallbladder fossa. PANCREAS: There is no evidence of pancreatic mass nor dilatation of the pancreatic duct. RIGHT KIDNEY:No evidence of solid mass, calculus, nor hydronephrosis. No cortical cysts evident. ABDOMINAL AORTA AND IVC: Visualized portions exhibit normal caliber. IMPRESSION: 1. No evidence of abnormal fluid collection in the gallbladder fossa in this patient who has had rec ent cholecystectomy, approximately 2 weeks ago. 2. No other significant ultrasound findings in the right upper quadrant. 3. No dilatation biliary tree. Pancreas appears unremarkable. DATA REPOSITORY:
[2020-10-28] MEDS: Ondansetron 4 MG/2 ML VIAL IVP (10:32)
[2020-10-28] MEDS: predniSONE 20 MG TAB 60 MG PO (10:32)
[2020-10-28] MEDS: Meclizine 25 MG TAB PO (10:32)
--- NOTE | 2020-10-28 11:00 | RT.EKG_ITS ---
APPROVED REPORT Exam: Resting ECG Reason for Exam: dizziness Patient Location: E HR:65 bpm ECG Measurements Heart Rate 65 AXIS AZ 156 P 74 QRSd 82 QRS 28 QT 414 T 61 QTc 433 Conclusion Sinus rhythm...normal P axis, V-rate 60- 99 No STEMI. I have reviewed and interpreted ECG and agree with software generated interpretation.
[2020-10-28 11:01] LABS: Bilirubin Negative (Negative); Blood Trace-intact (Negative); Clarity Clear (Clear); Glucose Negative (Negative); Ketones Negative (Negative); Leukocyte Esterase Negative (Negative); Nitrite Negative (Negative); Urobilinogen 0.2 EU/dL (Up TO 0.2)
[2020-10-28 11:14] LABS: Bacteria Few HPF (Negative); C & S Indicated? No; Casts Negative LPF (Negative); Crystals Negative HPF (Negative); Epithelial Cells Few HPF (Negative); Mucus Trace (Negative); Other Cells Negative (Negative); RBC 0-2 HPF (0-2); WBC Negative HPF (0-5)
[2020-10-28 12:44] VITALS: BP 119/69; PULSE 68; RESP 16; TEMP 36.7; O2SAT 97
--- NOTE | 2020-10-28 12:53 | NUR.NOTE ---
PO challenge with crackers and demetra-campbell Nursing Note:
[2020-10-28 13:07] VITALS: BP 119/69; PULSE 68; RESP 16; TEMP 36.7; O2SAT 97
== END 2020-10-28 13:15 | disposition home or self-care (01) ==
PROVIDERS: Emergency Provider Physician Assistant; PCP Physician Assistant Medical
DX: R11.2 Nausea with vomiting, unspecified (principal); R42 Dizziness and giddiness; H92.01 Otalgia, right ear
CPT/HCPCS: 36415; 80053; 83690; 93005; 96361; 96374; 99284; 76705; 81003; 81015; 85025; 93010; 99283; J2405; J7512

== ENCOUNTER 2020-12-10 19:03 | Outpatient (REF) | payer BC, SELFPAY | END 2020-12-10 19:04 | disposition home or self-care (01) | LOC: LBN 19:03 | PROVIDERS: PCP Physician Assistant Medical; Visit Provider Physician Assistant Medical | DX: R30.0 Dysuria (principal) | CPT/HCPCS: 87086 ==

== ENCOUNTER 2021-03-07 21:28 | Outpatient (CLI) | payer BC, SELFPAY ==
--- NOTE | 2021-03-07 | DI.RAD_ITS ---
Exam(s) XR KNEE LT 3V AP,LAT,NASRA EXAM: XR KNEE LT 3V AP,LAT,NASRA CLINICAL HISTORY: LT KNEE PAIN M25.562. TECHNIQUE: 2D digital imaging was performed. COMPARISON: No exams were available for comparison FINDINGS: There is moderate narrowing of the medial femoral tibial joint space and periarticular spurring. Spu rring is also seen from the tibial spines and intercondylar notch as well as the patellofemoral joint . No joint effusion is visible. There is some irregularity of the contour lateral femoral condyle w hich has a chronic appearance. This could be related to previous trauma or secondary to degenerative changes. IMPRESSION: Degenerative changes, greatest of the medial femoral tibial joint. DATA REPOSITORY: RADIATION DOSE DELIVERED:
--- NOTE | 2021-03-07 | DI.RAD_ITS ---
Exam(s) XR HIP LT COMPLETE AP PELVIS EXAM: XR HIP LT COMPLETE AP PELVIS INDICATION: LT HIP PAIN M25.562. COMPARISON: CT CT ABDOMEN PELVIS W from 08/12/2020 TECHNIQUE: 2D digital imaging was performed. FINDINGS: Hip joint spaces are well maintained. There is bilateral acetabular spurring. There is mild spurrin g from the margins of the femoral heads. The SI joints and pubic symphysis are unremarkable. There is a small calcified uterine fibroid. IMPRESSION: Mild degenerative changes of both hips. DATA REPOSITORY: RADIATION DOSE DELIVERED:
== END 2021-03-07 21:48 ==
PROVIDERS: PCP Physician Assistant Medical; Visit Provider Physician Assistant Medical
DX: M25.562 Pain in left knee (principal); M17.12 Unilateral primary osteoarthritis, left knee; M25.552 Pain in left hip; M16.12 Unilateral primary osteoarthritis, left hip
CPT/HCPCS: 73562; 73502

== ENCOUNTER 2021-06-06 17:28 | Outpatient (REF) | payer OTHER, SELFPAY ==
[2021-06-06 19:51] LABS: HCT 42.7 % (36.0-46.0); HGB 14.3 g/dL (11.2-15.7); MCH 29.9 pg (27.0-33.0); MCHC 33.5 % (32.0-36.0); MCV 89.1 fL (80-95); MPV 10.6 fL (8.0-11.0); Platelet Count 239 10^3/uL (130-400); RBC 4.79 10^6/uL (3.93-5.22); RDW 12.4 % (11.7-14.6); RDW-SD 40.7 fL; WBC 6.65 10^3/uL (4.4-10.8)
[2021-06-06 19:52] LABS: Anion Gap 5.3 mmol/L (3-11); BUN 21 mg/dL (7-18); CO2 32.7 mmol/L (21.0-32.0); CREATININE 0.9 mg/dL (0.55-1.02); Chloride 106 mmol/L (98-107); Glucose 92 mg/dL (74-106); Potassium 4.2 mmol/L (3.5-5.1); Sodium 144 mmol/L (136-145)
== END 2021-06-06 17:29 | disposition home or self-care (01) ==
LOC: NCHCN 17:28
PROVIDERS: PCP Physician Assistant Medical; Visit Provider Nurse Practitioner Family
DX: E86.0 Dehydration (principal); R11.2 Nausea with vomiting, unspecified
CPT/HCPCS: 80048; 85027

== ENCOUNTER 2021-07-21 10:03 | Outpatient (CLI) | payer OTHER, SELFPAY ==
--- NOTE | 2021-07-21 09:34 | DI.RAD_ITS ---
Exam(s) XR KNEE RT 3V AP,LAT,NASRA EXAM: XR KNEE RT 3V AP,LAT,NASRA CLINICAL HISTORY: pain in knee. TECHNIQUE: 2D digital imaging was performed of the right knee. Three views obtained. AP, lateral an d merchant's views were obtained. COMPARISON: No previous for comparison. FINDINGS: BONES: No acute fracture is present. No bony destructive lesion is seen. JOINTS: The knee is normally aligned. The patient has a right total knee replacement. No lucencies a re seen in or about the orthopedic hardware to suggest loosening or infection. SOFT TISSUE: Normal. IMPRESSION: Stable right TKR. DATA REPOSITORY: RADIATION DOSE DELIVERED:
== END 2021-07-21 10:04 | disposition home or self-care (01) ==
LOC: DIORS 10:03
PROVIDERS: PCP Physician Assistant Medical; Referring Provider Physician Assistant Medical; Visit Provider Physician Assistant Surgical
DX: Z96.651 Presence of right artificial knee joint (principal); M25.561 Pain in right knee
CPT/HCPCS: 73562

== ENCOUNTER 2021-08-19 00:24 | Outpatient (CLI) | payer OTHER, SELFPAY ==
--- NOTE | 2021-08-19 06:15 | DI.NM_ITS ---
Exam(s) NM BONE SCAN 3 PHASE EXAM: SC BONE SCAN 3 PHASE CLINICAL HISTORY: ? LOOSENING,h/o total knee, pain. COMPARISON: CR XR KNEE LT 3V AP,LAT,NASRA from 03/07/2021 NM NM GASTRIC EMPTYING from 08/10/2021 TECHNIQUE: Three-phase bone scan was performed with attention to the knees following intravenous inf usion of 25.0 millicuries of technetium 99 labeled methylene diphosphonate. Whole body imaging shows mildly increased uptake adjacent to femoral and tibial components of right k nee prosthesis. No abnormality on flow or blood pool imaging. Planar images of the knees show mildly increased uptake adjacent to the components of the right TKR w hich is within the normal expected range of appearance. A couple of areas of mildly increased uptake are seen in the feet and in the left knee consistent wit h degenerative change. No other significant findings. FINDINGS: No evidence of loosening of right knee prosthesis on this study. IMPRESSION: DATA REPOSITORY:
== END 2021-08-19 00:44 ==
PROVIDERS: PCP Physician Assistant Medical; Visit Provider Student in an Organized Health Care Education/Training Program
DX: Z96.651 Presence of right artificial knee joint (principal)
CPT/HCPCS: 78315

== ENCOUNTER 2021-08-19 01:41 | Outpatient (CLI) | payer OTHER, SELFPAY ==
[2021-08-19 08:28] LABS: ESR 9 mm/hr (0-30)
[2021-08-19 17:36] LABS: CRP, High Sensitivity 2.16 mg/L (See Note)
== END 2021-08-19 01:42 | disposition home or self-care (01) ==
LOC: LBO 01:41
PROVIDERS: PCP Physician Assistant Medical; Visit Provider Student in an Organized Health Care Education/Training Program
DX: T84.84XA Pain due to internal orthopedic prosthetic devices, implants and grafts, initial encounter (principal); Z96.651 Presence of right artificial knee joint
CPT/HCPCS: 85652; 86141

== ENCOUNTER 2021-08-22 02:48 | Outpatient (CLI) | payer OTHER, SELFPAY ==
[2021-08-22 11:23] LABS: Source Nasal/Nares
[2021-08-22 16:09] LABS: COVID-19 PCR Negative (Negative)
== END 2021-08-22 02:49 | disposition home or self-care (01) ==
PROVIDERS: PCP Physician Assistant Medical; Visit Provider Student in an Organized Health Care Education/Training Program
DX: Z20.822 Contact with and (suspected) exposure to COVID-19 (principal); Z01.818 Encounter for other preprocedural examination
CPT/HCPCS: 87635

== ENCOUNTER 2021-08-23 07:19 | Day surgery (SDC) | payer OTHER, SELFPAY ==
[2021-08-23 07:29] VITALS: BP 112/74; PULSE 81; RESP 16; TEMP 35.8; O2SAT 98
--- NOTE | 2021-08-23 07:31 | W.PREOPHP ---
Documented by User: CORINE Green 08/23/21 07:37 Assessment and Plan Assessment and plan (1) Arthrofibrosis of total knee arthroplasty: Status: Acute Assessment and plan: Arthroscopic synovectomy of right knee in the setting of a total knee replacement. Details of surgery were discussed with patient as well as risks and pertinent anatomy. All questions were answered. (2) Trochanteric bursitis of left hip: Status: Acute History of Present Illness History of Present Illness Chief Complaint: Right total knee pain/stiffness Narrative: Amy is in today for an arthroscopic synovectomy of the right knee in the setting of a total knee replacement. She has a history of a right total knee replacement in 2014, and feels as though she is always had some increased stiffness in the right knee. She relates an arthroscopic synovectomy in the past, and states that she thought that this procedure helped. Since then, however, she feels as though her symptoms have returned. Despite trying physical therapy, she has not been able to overcome the lack of range of motion in her right knee. She has become frustrated with her knee because of the lack of motion. Because she has failed conservative treatment including physical therapy, Dr. Ontiveros does offer a repeat arthroscopic synovectomy of the right total knee replacement, and she is anxious to proceed. Pertinent Surgical Information Patient denies history of hypertension, CVA, AL, angina, asthma, COPD, renal or liver disorders, hepatitis, bleeding disorders, diabetes, immune or thyroid disorders. No complications from anesthesia. Review of Systems Constitutional Constitutional: Denies fever(s) ENT Ears, Nose, Mouth, and Throat: Denies dizziness and Denies sore throat Cardiovascular Cardiovascular: Denies chest pain, Denies palpitations and Denies dyspnea Respiratory Respiratory: Denies cough and Denies dyspnea Gastrointestinal Gastrointestinal: Denies abdominal pain, Denies melena, Denies hematochezia, Denies diarrhea, Denies nausea and Denies vomiting Genitourinary Genitourinary: Denies hematuria and Denies dysuria Neurologic Neurologic: Denies dizziness Endocrine Endocrine: Denies palpitations PFSH All Active Problems (Updated 08/23/21 @ 09:21 by Sekou Ontiveros MD) Trochanteric bursitis of left hip (Acute) Nausea & vomiting (Acute) Deviated nasal septum (Acute) Hypertrophy of inferior nasal turbinate (Acute) RUQ pain (Acute) Acalculous cholecystitis (Acute) Dizziness (Acute) Nausea and vomiting (Acute) Acute effusion of right ear (Acute) Sensorineural hearing loss of both ears (Acute) Osteoarthritis of left knee (Acute) Femoroacetabular impingement of left hip (Acute) Arthritis of left hip (Acute) Arthrofibrosis of total knee arthroplasty (Acute) RIGHT Medical History (Updated 08/23/21 @ 09:21 by Sekou Ontiveros MD) Cyclical vomiting Diverticulosis ZO (obstructive sleep apnea) PONV (postoperative nausea and vomiting) Uterine fibroid Surgical History H/O esophagogastroduodenoscopy History of arthroscopy of both knees History of bilateral breast reduction surgery History of nasal surgery History of total right knee replacement Social History Smoking/Tobacco Use Status: Never Smoking risk assessment performed?: Yes Alcohol Intake: current Alcohol Intake frequency: holidays/special occasions only Drug use: Never Substance use type: marijuana Current gender identity: female Do you feel safe at home: Yes Do you feel safe in your relationship?: Yes Meds Allergies and Home Medications Allergies Allergy/AdvReac Type Severity Reaction Status Date / Time cephalexin Allergy Severe Skin Rash Unverified 08/23/21 07:40 nitrofurantoin Allergy Severe Skin Rash Unverified 08/23/21 07:40 [From Macrobid] Penicillins Allergy Intermediate rash Verified 08/23/21 07:40 Home Medications Medication Instructions Recorded Confirmed Type ondansetron HCl 4 mg tablet 4 mg PO Q8H #14 tab 08/12/20 08/23/21 Rx (Zofran) meclizine 12.5 mg tablet 12.5 mg PO TID PRN #14 tab 10/28/20 08/23/21 Rx promethazine 12.5 mg tablet 12.5 mg PO Q6H PRN #30 tab 11/02/20 08/23/21 Rx omeprazole 20 mg capsule,delayed 40 mg PO DAILY cap 04/26/21 08/23/21 History release Exam Const General: cooperative and no acute distress Orientation: alert and awake HENCA Head: normocephalic and atraumatic Eyes Conjunctivae: conjunctivae normal Sclera: sclerae normal Resp Effort & Inspection: normal respiratory effort Auscultation: clear to auscultation bilaterally and no wheezes Cardio Rate: regular rate Rhythm: regular rhythm Heart Sounds: S1 normal, S2 normal and no murmurs Documented by User: Sekou Ontiveros MD 08/23/21 09:22 Assessment and Plan Assessment and plan (1) Arthrofibrosis of total knee arthroplasty: Status: Acute Assessment and plan: Amy has had continued restricted motion about the right knee. She feels like a rubber band is pulling with the knee. Although prognosis is limited, I offered an arthroscopic synovectomy. I am hopeful this will relieve some of the pressure that she feels with range of motion of the knee. She is scheduled for return to physical therapy on a daily basis. I once again reviewed the surgery with her. I discussed the risk of the procedure to include bleeding, infection, pain, continued stiffness, need for repeat procedures, blood clot. Despite these risk, she elects to proceed. (2) Trochanteric bursitis of left hip: Status: Acute Assessment and plan: Plan for left hip injection today in the operating room. If she has good success with this injection we will proceed with the right side in the office at her follow-up. I discussed the injection with her and she agrees to proceed. History of Present Illness Narrative: Amy is in today for an arthroscopic synovectomy of the right knee in the setting of a total knee replacement. She has a history of a right total knee replacement in 2014, and feels as though she is always had some increased stiffness in the right knee. She relates an arthroscopic synovectomy in the past, and states that she thought that this procedure helped. Since then, however, she feels as though her symptoms have returned. Despite trying physical therapy, she has not been able to overcome the lack of range of motion in her right knee. She has become frustrated with her knee because of the lack of motion. Because she has failed conservative treatment including physical therapy, Dr. Ontiveros does offer a repeat arthroscopic synovectomy of the right total knee replacement, and she is anxious to proceed. She also has continued to have bilateral, left worse than right, lateral hip pain. She has been dealing with trochanter bursitis for some time and continues to be limited by this. She is interested in an injection. [facility] All Active Problems (Updated 08/23/21 @ 09:21 by Sekou Ontiveros MD) Trochanteric bursitis of left hip (Acute) Nausea & vomiting (Acute) Deviated nasal septum (Acute) Hypertrophy of inferior nasal turbinate (Acute) RUQ pain (Acute) Acalculous cholecystitis (Acute) Dizziness (Acute) Nausea and vomiting (Acute) Acute effusion of right ear (Acute) Sensorineural hearing loss of both ears (Acute) Osteoarthritis of left knee (Acute) Femoroacetabular impingement of left hip (Acute) Arthritis of left hip (Acute) Arthrofibrosis of total knee arthroplasty (Acute) RIGHT Medical History (Updated 08/23/21 @ 09:21 by Sekou Ontiveros MD) Cyclical vomiting Diverticulosis ZO (obstructive sleep apnea) PONV (postoperative nausea and vomiting) Uterine fibroid Surgical History H/O esophagogastroduodenoscopy History of arthroscopy of both knees History of bilateral breast reduction surgery History of nasal surgery History of total right knee replacement Social History Smoking/Tobacco Use Status: Never Smoking risk assessment performed?: Yes Alcohol Intake: current Alcohol Intake frequency: holidays/special occasions only Drug use: Never Substance use type: marijuana Current gender identity: female Do you feel safe at home: Yes Do you feel safe in your relationship?: Yes Meds Allergies and Home Medications Allergies Allergy/AdvReac Type Severity Reaction Status Date / Time cephalexin Allergy Severe Skin Rash Unverified 08/23/21 07:40 nitrofurantoin Allergy Severe Skin Rash Unverified 08/23/21 07:40 [From Macrobid] Penicillins Allergy Intermediate rash Verified 08/23/21 07:40 Home Medications Medication Instructions Recorded Confirmed Type ondansetron HCl 4 mg tablet 4 mg PO Q8H #14 tab 08/12/20 08/23/21 Rx (Zofran) meclizine 12.5 mg tablet 12.5 mg PO TID PRN #14 tab 10/28/20 08/23/21 Rx promethazine 12.5 mg tablet 12.5 mg PO Q6H PRN #30 tab 11/02/20 08/23/21 Rx omeprazole 20 mg capsule,delayed 40 mg PO DAILY cap 04/26/21 08/23/21 History release
[2021-08-23] MEDS: Lactated Ringers 1,000 ML 80 ML IV (08:02)
[2021-08-23] MEDS: Celecoxib 200 MG CAP 400 MG PO (08:03)
[2021-08-23] MEDS: Acetaminophen 500 MG TAB 1000 MG PO (08:04)
--- NOTE | 2021-08-23 08:48 | ANES.PREOP_ITS ---
General Info Date of Service Date Performed: 08/23/21 Height: 5 ft 7.5 in Weight: 86.183 kg Body Mass Index (BMI): 29.3 Surgical Procedure: Operation Date: 08/23/21 09:55 Proposed Procedure Side Surgeon p Knee Arthroscopy Synovectomy w/Manipulation Right Sekou Ontiveros MD Meds Allergies and Home Medications Allergies Allergy/AdvReac Type Severity Reaction Status Date / Time cephalexin Allergy Severe Skin Rash Unverified 08/23/21 07:40 nitrofurantoin Allergy Severe Skin Rash Unverified 08/23/21 07:40 [From Macrobid] Penicillins Allergy Intermediate rash Verified 08/23/21 07:40 Home Medication Medication Instructions Recorded ondansetron HCl 4 mg tablet 4 mg PO Q8H #14 tab 08/12/20 (Zofran) meclizine 12.5 mg tablet 12.5 mg PO TID PRN #14 tab 10/28/20 promethazine 12.5 mg tablet 12.5 mg PO Q6H PRN #30 tab 11/02/20 omeprazole 20 mg capsule,delayed 40 mg PO DAILY cap 04/26/21 release Current Visit Medications: Current Medications Generic Name Dose Route Start Last Admin Trade Name Freq PRN Reason Stop Dose Admin Acetaminophen 1,000 mg 08/23/21 06:00 08/23/21 08:04 Acetaminophen 500 Mg Tab PO 08/23/21 16:00 1,000 mg PREOP VIANNEY Administration Celecoxib 400 mg 08/23/21 06:00 08/23/21 08:03 Celecoxib 200 Mg Cap PO 08/23/21 16:00 400 mg PREOP VIANNEY Administration Ringer's Solution 1,000 mls @ 80 mls/hr 08/23/21 06:00 08/23/21 08:02 IV 09/01/21 23:59 80 mls/hr INFUSION VIANNEY Administration Cefazolin Sodium/Dextrose 2 gm in 50 mls @ 100 mls/hr 08/23/21 06:00 Ancef Duplex IVPB 08/23/21 23:59 PREOP VIANNEY IV Miscellaneous Supplies 1 each 08/23/21 06:00 Iv Access IV 09/01/21 23:59 DIRECTED VIANNEY Sodium Chloride 0 ml 08/23/21 06:00 Normal Saline Flush 10 Ml Syr IV 09/01/21 23:59 PRN PRN Sodium Chloride 0 ml 08/23/21 06:00 Normal Saline 10 Ml Vial IJ 09/01/21 23:59 DIRECTED PRN Sterile Water 0 ml 08/23/21 06:00 Water,Injection,Sterile 10 Ml Vial IJ 09/01/21 23:59 DIRECTED PRN PFSH Active Problems Active Problems: Problem Status Onset Code Nausea & vomiting R11.2 Deviated nasal septum J34.2 Hypertrophy of inferior nasal turbinate J34.3 RUQ pain R10.11 Acalculous cholecystitis K81.9 Dizziness R42 Nausea and vomiting R11.2 Acute effusion of right ear H65.191 Sensorineural hearing loss of both ears H90.3 Osteoarthritis of left knee M17.12 Femoroacetabular impingement of left hip M25.852 Arthritis of left hip M16.12 Arthrofibrosis of total knee arthroplasty T84.82XA Medical History Medical History Cyclical vomiting Diverticulosis ZO (obstructive sleep apnea) PONV (postoperative nausea and vomiting) Uterine fibroid Medical History Comments:: No CPAP *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 will take PO Zofran AM of procedure PATIENT REQUESTS ABSOLUTLEY NO NARCOTICS! Surgical History Surgical History H/O esophagogastroduodenoscopy History of arthroscopy of both knees History of bilateral breast reduction surgery History of nasal surgery History of total right knee replacement Tobacco Smoking/Tobacco Use Status: Never Alcohol Alcohol Intake: current Alcohol intake frequency: holidays/special occasions only Substance Use Substance use: Never Substance use type: marijuana Vital Signs and Lab Results Vital Signs Most Recent Vital Signs in EMR: Most Recent Vital Signs Temp Pulse Resp BP Pulse Ox 35.8 C L 81 16 112/74 98 08/23/21 07:29 08/23/21 07:29 08/23/21 07:29 08/23/21 07:29 08/23/21 07:29 Lab Results Blood Type / Crossmatch: No Data to Display Complete Blood Count: No Data to Display Complete Metabolic Panel: No Data to Display Liver Function Panel: No Data to Display Coagulation Panel: No Data to Display Cardiac Panel: No Data to Display Arterial Blood Gas: No Data to Display Venous Blood Gas: No Data to Display Pancreas Panel: No Data to Display Thyroid Panel: No Data to Display Infectious Disease: Coronavirus (COVID-19)(PCR) Negative (Negative) 08/22/21 09:05 08/22/21 Coronavirus 2019 Source Nasal/Nares 08/22/21 09:05 08/22/21 Blood Cultures: No Data to Display Toxicology Panel: No Data to Display Imaging and Studies Imaging and Studies Study information below may be from another EMR and interpreted by another provider. Please see original notes in EMR for more complete details. EKG Summary: Sinus rhythm...normal P axis, V-rate 60- 99 Anesthesia Assessment and Plan Anesthesia History Personal History: PONV Family History: No Family History of Anesthesia Complications Exercise Tolerance Exercise Tolerance: Metabolic Equivalents>4 Pertinent Negatives Pertinent Negatives: No Symptoms of GERD, No Major Cardiovascular Symptoms or Complaints, No Major Pulmonary Symptoms or Complaints and No History of CVA/TIA Cardiac & Pulmonary Exam Cardiac Exam: Normal S1/S2 Heart Sounds Pulmonary Exam: Clear Bilateral Breath Sounds Implantable Cardiac Device Does patient have a Pacemaker or an ICD?: No Airway Exam Known Difficult Airway: No Mallampati Class: 3 Mouth Opening: Narrow (< 3cm) Thyromental Distance: Less than 3 cm Neck Range of Motion: Full ROM Neck Circumference: Normal Teeth Condition: Normal Dentition and Generalized Poor Dentition ASA Classification ASA Score: ASA 2 Emergency Case?: No NPO Status NPO Status: NPO Clears >2 hours, Solids >8 hours Anesthesia Plan Resuscitation Status: Full Code Anesthesia Technique: Spinal Anesthesia Airway Planned: Natural Airway Monitors Used: Standard Monitors
[2021-08-23 08:50] VITALS: BMI 29.3
--- NOTE | 2021-08-23 09:29 | PDOC.DSDIS_ITS ---
Discharge Plan Disposition Patient Disposition: HOME Discharge Details Reason For Visit: R knee arthrocopy, L hip injection Attending Provider: Sekou Ontiveros Primary Care Provider: Thierry Jane Home Meds and New Rx's Prescriptions: New hydrocodone-acetaminophen 5-325 mg tablet 1 tab PO Q6H PRN (Reason: pain) Qty: 6 0RF acetaminophen 500 mg tablet 1,000 mg PO TID Qty: 90 0RF ibuprofen 600 mg tablet 600 mg PO TID PRN (Reason: pain) Qty: 90 0RF Continued promethazine 12.5 mg tablet 12.5 mg PO Q6H PRN (Reason: nausea and vomiting) Qty: 30 0RF omeprazole 20 mg capsule,delayed release(DR/EC) 40 mg PO DAILY 0RF ondansetron HCl [Zofran] 4 mg tablet 4 mg PO Q8H Qty: 14 0RF meclizine 12.5 mg tablet 12.5 mg PO TID PRN (Reason: dizziness) Qty: 14 0RF Discharge Instructions Stand Alone Forms: [facility] Referrals: Sekou Ontiveros MD [ [facility] STAFF PHYSICIAN] - Equipment/Supplies: Partial Weight Bearing Crutches Activity:: Activity as Tolerated Remove Dressings/Wound Care:: 48 hours Shower/Bathe:: 48 hours Diet:: As Tolerated Discharge Orders Discharge Orders: Discharge Order (Routine); Ordered 08/23/21 Ordered By: Gorge Gross DS: Diagnosis Discharge Diagnosis (1) Arthrofibrosis of total knee arthroplasty: Status: Acute (2) Trochanteric bursitis of left hip: Status: Acute
[2021-08-23] MEDS: methylPREDNISolone ACETATE 80 MG/ML VIAL (09:36)
[2021-08-23] MEDS: Bupivacaine 0.5% Pres-Free 30 ML VIAL (10:14)
[2021-08-23 10:25] VITALS: BP 91/60; PULSE 91; RESP 16; TEMP 35.8; O2SAT 98
[2021-08-23 10:55] VITALS: BP 103/81; PULSE 81; RESP 17; TEMP 36.2; O2SAT 100
--- NOTE | 2021-08-23 11:19 | W.ANESPOSTOP ---
Postoperative Evaluation Date, Time and Location Date Performed: 08/23/21 Time Performed: 11:19 Patient Location: Day Surgery Unit Vital Signs Most Recent Imported Vital Signs: Most Recent Vital Signs Temp Pulse Resp BP Pulse Ox 35.8 C L 91 H 16 91/60 L 98 08/23/21 10:25 08/23/21 10:25 08/23/21 10:25 08/23/21 10:25 08/23/21 10:25 Pain Score Most Recent Pain Score: Most Recent Pain Score Pain Level 0 08/23/21 10:25 Assessment Mental Status: Awake (Alert & Oriented to Patient Baseline) Airway and Respiratory Function: Patent airway with normal (patient baseline) respiratory exam Cardiovascular Function: Hemodynamically Stable Hydration Status: Adequately Hydrated Nausea & Vomiting: No Nausea or Vomiting Pain: Pt. Denies Any Pain Peripheral Nerve Block: Patient did not receive a nerve block
--- NOTE | 2021-08-23 15:47 | W.PM.OP ---
Date of service: 08/23/21 Time of Service: 10:40 Operative Note Operative Note DATE OF PROCEDURE: 08/23/21 PRE-OP DIAGNOSIS: Arthrofibrosis of Knee Replacement - RIGHT POST-OP DIAGNOSIS: same PROCEDURE: Arthroscopic Synovectomy of 3 Compartments with Manipulation - Right Knee SURGEON: Sekou Ontiveros ANESTHESIA TYPE: Spinal Refer to Anesthesia Record ESTIMATED BLOOD LOSS: 5 PATHOLOGY: none sent COMPLICATIONS: None Patient was transported to: PACU Patient's condition: stable Indications: I have seen Amy in clinic for symptoms of arthrofibrosis of the knee following knee replacement surgery. This was confirmed based on MRI and exam findings. Nonoperative measures were exhausted but disability due to lack of motion persisted. I discussed knee arthroscopy with synovectomy with maniuplation with the patient. I reviewed the risks of the procedure to include, but not limited to, bleeding, infection, pain, continued stiffness, recurrence, blood clot. Despite these risks, the patient elected to proceed. Findings: Preoperative Range of Motion: Flexion: 100 Extension:0 Postoperative Range of Motion: Flexion:130 Extension:0 Procedure Description: Amy was greeted in the preoperative holding area where the correct side was identified and marked. The consent was reviewed with the patient and signed. The history and physical was updated. All questions were answered. Amy was taken back to the operating room. The patient was placed into the supine position on the operating room table. All bony prominences were well padded. Prophylactic antibiotics in the form of Cilndamycin were administered. Preoperative range of motion was assessed as 0 - 100. The right leg was then prepped with Chloraprep and draped in a standard fashion with stockinette and extremity drape. A timeout to confirm correct identity, side and site, procedure, allergies, anesthesia, and medical concerns was performed. The leg was placed into a pneumatic leg marley, [id number]. A standard lateral portal was made at the lateral border of the patella tendon in line with the inferior pole of the patella, soft spot. The skin and deep tissue was incised sharply and the blunt trochar was inserted atraumatically. At this point had visualization of the femoral component. A superolateral portal was then established with spinal needle localization just superior and lateral to the patella. A knife was taken down through the skin and soft tissue to enter the knee joint. Starting in the superior compartment above the femoral component and anterior to the femur I released all scarring between the anterior femoral synovium and the overlying extensor mechanism. This was taken through all of any noticeable scar tissue until the superior patellar pouch was fully released and mobile. This resection was carried out mostly with electrocautery as well as shaver. Once this was released fully from lateral to medial superiorly I then continue working down the lateral gutter. All scar tissue in the lateral gutter was released so there is normal space and movement between the capsular tissues and the edge of the femoral component and femur. This was taken down through the lateral gutter such that I was able to identify the polyethylene to its posterior corner. Once again, all scar tissue in this area was resected so the polyethylene was easily visible and there is no interposed tissue in the back or the polyethylene was identified. I think continue to work anteriorly. To continue the synovectomy from the lateral compartment to the anterior compartment into the medial compartment, I placed a medial portal under spinal needle localization. Once this was in place it became another working portal and I continued the synovectomy through the anterior compartment to the medial compartment. Once again, I freed up the medial gutter so I was able to visualize the polyethylene from the anterior posterior margins. There is no interposed tissue after full synovectomy was performed. Adhesions between the capsule and the femur were released. This was continued up the medial gutter until it met up with the releases performed previously in the superior compartment. Any remnant scar tissue from around the patella was then removed with a shaver and electrocautery. The arthroscope was brought back into the suprapatellar pouch and the leg was in full extension. The knee was thoroughly irrigated with the arthroscopic fluid on high flow and pressure. Inflow was stopped and excess fluid was removed. The leg was removed from the spider leg marley and manipulation was performed. I first push the knee into flexion and was able to obtain 130 degrees. I then worked the knee into extension, slowly applying an anterior to posterior directed pressure with support of the knee and no significant lever arm. This was cycled multiple times until I was able to obtain extension of 0 degrees. The wounds were closed with 4-0 Nylon. 0.25% ropivacaine was injected around the portal sites and into the knee. The wounds were dressed with Xeroform, 4x4 gauze, ABD pad, Kerlix and an MELIAN wrap. A cryo-cuff was applied. The patient tolerated the procedure well and was returned to the Same Day Surgery area in a stable condition suffering no known complication..
== END 2021-08-23 11:38 | disposition home or self-care (01) ==
PROVIDERS: PCP Physician Assistant Medical; Visit Provider Student in an Organized Health Care Education/Training Program
PROC: (CPT 29870; principal; 2021-08-23 09:45)
PROC: (CPT 29876; 2021-08-23 09:45)
DX: T84.82XA Fibrosis due to internal orthopedic prosthetic devices, implants and grafts, initial encounter (principal); G47.33 Obstructive sleep apnea (adult) (pediatric)
CPT/HCPCS: 29876; J1040; J1100; J1885; J2405

== ENCOUNTER → 2021-09-27 04:15 | Outpatient (CLI) | payer OTHER, SELFPAY ==
--- NOTE | 2021-09-27 07:45 | DI.MRI_ITS ---
Exam(s) MR BRAIN WO EXAM: MR BRAIN WO CLINICAL HISTORY: HEAD CT 06/2020 WITH MILD CORTICAL ATROPHY, NAUSEA AND VOMITING, R11.2 TECHNIQUE: Multiplanar multisequence MRI of the brain was performed. COMPARISON: CT CT FACE W/O CONTRAST from 06/27/[address] BRAIN W/O CONTRAST from 06/27/[address] C-SPINE W/O CONTRAST from 06/27/2020 FINDINGS: VENTRICLES AND EXTRA AXIAL SPACES: Normal in size and morphology for the patient's age. MIDLINE SHIFT: None. CEREBRAL PARENCHYMA: No focus of restricted diffusion to suggest acute infarct. No space-occupying le lacy identified. HEMORRHAGE: None. BRAINSTEM/CEREBELLUM: Normal. CALVARIUM: Normal. VISUALIZED PARANASAL SINUSES/MASTOIDS:Small fluid level in the left sphenoid sinus. The remaining vi sualized paranasal sinuses and mastoid air cells are clear. [place]: Normal flow void. [place]: Unremarkable. OTHER FINDINGS: None. IMPRESSION: Mild left sphenoid sinusitis. Otherwise unremarkable MRI of the brain. DATA REPOSITORY:
== END ==
PROVIDERS: PCP Physician Assistant Medical; Visit Provider Physician Assistant Medical
DX: R11.2 Nausea with vomiting, unspecified (principal); J32.3 Chronic sphenoidal sinusitis
CPT/HCPCS: 70551

== ENCOUNTER 2021-11-07 15:00 | Outpatient (REF) | payer OTHER, SELFPAY ==
--- NOTE | 2021-11-07 14:45 | PAPFT_PTH ---
PATIENT: Amy Velasquez [id number] AGE/SX: 56/F ROOM: RE11/07/[address]: Thierry Jane : 1965 BED: DIS: 11/07/2021 SPEC #: [id number] RECD: 11/08/21 12:48 STATUS: RADHIKA REMicha #: [id number] MONE: 11/07/21 14:[address]: Thierry Jane DEPT: [facility] Cytology RECD BY: Phylicia Zamora Tissues: 1 - CX/ENDOCX FOR PAP SMEARS Procedures: PAP THIN PREP/UVM Screening HPV DNA PROBE Comments: [id number]
[2021-11-07 18:55] LABS: Abs Immature Grans 0.01 10^3/uL (0.0-0.06); Absolute Basophil Count 0.04 10^3/uL (0.0-0.2); Absolute Eosinophil Count 0.19 10^3/uL (0.0-0.7); Absolute Lymphocyte Count 2.94 10^3/uL (1.2-3.4); Absolute Monocyte Count 0.57 10^3/uL (0.1-0.8); Absolute Neutrophil Count 4.17 10^3/uL (1.2-6.7); Basophils % 0.5; Eosinophils % 2.4; HCT 43.7 % (36.0-46.0); HGB 14.4 g/dL (11.2-15.7); Immature Grans % 0.1; Lymphocytes % 37.1; MCH 30.5 pg (27.0-33.0); MCV 93 fL (80-95); MPV 10.1 fL (8.0-11.0); Monocytes % 7.2; Neutrophils % 52.7; Platelet Count 263 10^3/uL (130-400); RBC 4.72 10^6/uL (3.93-5.22); RDW 12.2 % (11.7-14.6); RDW-SD 41.7 fL; WBC 7.92 10^3/uL (4.4-10.8)
[2021-11-07 19:14] LABS: ALT 39 U/L (14-59); AST 19 U/L (15-37); Albumin 4.1 g/dL (3.4-5.0); Alkaline Phosphatase 84 U/L (46-116); Anion Gap 9.8 mmol/L (3-11); BUN 21 mg/dL (7-18); Bilirubin, Total 0.2 mg/dL (0.2-1.0); CO2 29.2 mmol/L (21.0-32.0); CREATININE 0.7 mg/dL (0.55-1.02); Calculated LDL 207 mg/dL (<100); Chloride 105 mmol/L (98-107); Cholesterol 292 mg/dL (<200); Glucose 85 mg/dL (74-106); HDL Cholesterol 58 mg/dL (40-60); Sodium 144 mmol/L (136-145); TSH (W/Ref FT4) 1.69 uIU/mL (0.36-3.74); Total Protein 7.7 g/dL (6.4-8.2); Triglyceride 139 mg/dL (<150)
[2021-11-07 19:27] LABS: Vitamin D 25 Total 23.2 ng/mL (30-100)
== END 2021-11-07 15:01 | disposition home or self-care (01) ==
LOC: NCHCN 15:00
PROVIDERS: PCP Physician Assistant Medical; Visit Provider Physician Assistant Medical
DX: Z00.00 Encounter for general adult medical examination without abnormal findings (principal); Z13.29 Encounter for screening for other suspected endocrine disorder; Z13.0 Encounter for screening for diseases of the blood and blood-forming organs and certain disorders involving the immune mechanism; Z13.228 Encounter for screening for other metabolic disorders; Z13.220 Encounter for screening for lipoid disorders; Z12.4 Encounter for screening for malignant neoplasm of cervix; Z01.419 Encounter for gynecological examination (general) (routine) without abnormal findings; Z11.51 Encounter for screening for human papillomavirus (HPV)
CPT/HCPCS: 80053; 80061; 82306; 88142; 84443; 85025; 87624

== ENCOUNTER 2022-08-25 16:30 | Outpatient (REF) | payer OTHER, SELFPAY | END 2022-08-25 16:31 | disposition home or self-care (01) | LOC: NCHCN 16:30 | PROVIDERS: PCP Physician Assistant Medical; Visit Provider Physician Assistant Medical | DX: N95.2 Postmenopausal atrophic vaginitis (principal); R35.0 Frequency of micturition | CPT/HCPCS: 87086; 87480; 87510; 87660 ==

== ENCOUNTER 2023-02-16 09:42 | Outpatient (CLI) | payer OTHER, SELFPAY ==
--- NOTE | 2023-02-16 09:53 | DI.RAD_ITS ---
Exam(s) XR HIP LT COMPLETE AP PELVIS EXAM: XR HIP LT COMPLETE AP PELVIS CLINICAL HISTORY: eval L hip OA. TECHNIQUE: 2D digital imaging was performed. Two views. COMPARISON: CR XR HIP LT COMPLETE AP PELVIS from 03/07/2021 FINDINGS: BONES: No acute fracture is present. No bony destructive lesion is seen. JOINTS: No dislocation present. Hip joint spaces are maintained. Bilateral acetabular spurring. Min imal spurring from the margins of the femoral heads. SOFT TISSUE: Calcified fibroid. IMPRESSION: Stable mild degenerative changes. DATA REPOSITORY: RADIATION DOSE DELIVERED:
== END 2023-02-16 09:43 | disposition home or self-care (01) ==
LOC: DIORS 09:42
PROVIDERS: PCP Physician Assistant Medical; Referring Provider Physician Assistant Medical; Visit Provider Student in an Organized Health Care Education/Training Program
DX: M25.852 Other specified joint disorders, left hip (principal)
CPT/HCPCS: 73502

== ENCOUNTER 2023-03-05 04:18 | Outpatient (CLI) | payer OTHER, SELFPAY ==
[2023-03-05 09:29] LABS: HGB 15.5 g/dL (11.2-15.7); MCH 30.3 pg (27.0-33.0); MCHC 33.7 % (32.0-36.0); MCV 90 fL (80-95); MPV 9.4 fL (8.0-11.0); Platelet Count 274 10^3/uL (130-400); RBC 5.11 10^6/uL (3.93-5.22); RDW 12.5 % (11.7-14.6); WBC 7.65 10^3/uL (4.4-10.8)
[2023-03-05 09:49] LABS: Anion Gap 9.6 mmol/L (3-11); BUN 23 mg/dL (7-18); CO2 27.4 mmol/L (21.0-32.0); CREATININE 1.1 mg/dL (0.55-1.02); Calcium 9.5 mg/dL (8.5-10.1); Chloride 102 mmol/L (98-107); Estimated GFR 57.88 (mL/min/1.73m2); Glucose 81 mg/dL (74-106); Potassium 4.3 mmol/L (3.5-5.1); Sodium 139 mmol/L (136-145)
== END 2023-03-05 04:19 | disposition home or self-care (01) ==
LOC: LBO 04:18
PROVIDERS: PCP Physician Assistant Medical; Visit Provider Student in an Organized Health Care Education/Training Program
DX: M16.12 Unilateral primary osteoarthritis, left hip (principal); M25.552 Pain in left hip; Z01.818 Encounter for other preprocedural examination; Z01.812 Encounter for preprocedural laboratory examination
CPT/HCPCS: 36415; 80048; 85027

== ENCOUNTER 2023-03-13 08:23 | Day surgery (SDC) | payer OTHER, SELFPAY ==
[2023-03-13] VITALS (9 sets, daily range): BP systolic 97–127; BP diastolic 63–96; PULSE 64–95; RESP 11–20; TEMP 36.2–36.5; O2SAT 97–100; BMI 31.8
--- NOTE | 2023-03-13 08:30 | DI.RAD_ITS ---
Exam(s) XR HIP LT IN OR EXAM: XR HIP LT IN OR CLINICAL HISTORY: Femoroacetabular impingement of left hip TECHNIQUE: 2D and realtime digital imaging was performed. CONTRAST MATERIAL: Refer to procedure report. COMPARISON: CR XR HIP LT COMPLETE AP PELVIS from 02/16/2023 FINDINGS: Fluoroscopy was provided for Dr. Ontiveros during the performance of a left total hip replacement. P lease refer to the procedure report for complete details. Ka,r=3.13 mGy IMPRESSION: RADIATION DOSE DELIVERED:
[2023-03-13] MEDS: Acetaminophen 500 MG TAB 1000 MG PO (09:06)
[2023-03-13] MEDS: Celecoxib 200 MG CAP 400 MG PO (09:06)
--- NOTE | 2023-03-13 09:11 | W.ANESPRE ---
General Info Date of Service Date Performed: 03/13/23 Height: 5 ft 7.5 in Weight: 93.6 kg Body Mass Index (BMI): 31.8 Surgical Procedure: Operation Date: 03/13/23 11:20 Proposed Procedure Side Surgeon p Hip Total Hip Anterior, Corail Left Sekou Ontiveros MD Meds Allergies and Home Medications Allergies Allergy/AdvReac Type Severity Reaction Status Date / Time cephalexin Allergy Severe Skin Rash Unverified 03/13/23 09:02 nitrofurantoin Allergy Severe Skin Rash Unverified 03/13/23 09:02 [From Macrobid] Penicillins Allergy Intermediate rash Verified 03/13/23 09:02 Home Medication Medication Instructions Recorded ondansetron HCl 4 mg tablet 4 mg PO Q8H #14 tabs 08/12/20 (Zofran) meclizine 12.5 mg tablet 12.5 mg PO TID PRN dizziness #14 10/28/20 tabs promethazine 12.5 mg tablet 12.5 mg PO Q6H PRN nausea and 11/02/20 vomiting #30 tabs omeprazole 20 mg capsule,delayed 40 mg PO DAILY 04/26/21 release acetaminophen 500 mg tablet 1,000 mg PO TID #90 tabs 08/23/21 ibuprofen 600 mg tablet 600 mg PO TID PRN pain #90 tabs 08/23/21 aprepitant 125 mg capsule 125 mg PO .2xweekly 09/29/21 Current Visit Medications: Current Medications Generic Name Dose Route Start Last Admin Trade Name Freq PRN Reason Stop Dose Admin Acetaminophen 1,000 mg 03/13/23 06:00 03/13/23 09:06 Acetaminophen 500 Mg Tab PO 03/13/23 16:00 1,000 mg PREOP VIANNEY Administration Celecoxib 400 mg 03/13/23 06:00 03/13/23 09:06 Celecoxib 200 Mg Cap PO 03/13/23 16:00 400 mg PREOP VIANNEY Administration Tranexamic Acid 1,000 mg/ 60 mls @ 360 mls/hr 03/13/23 06:00 Sodium Chloride IV 03/13/23 16:00 PREOP VIANNEY Ringer's Solution 1,000 mls @ 80 mls/hr 03/13/23 06:00 IV 04/11/23 23:59 INFUSION VIANNEY Clindamycin Phosphate/Dextrose 900 mg in 50 mls @ 50 mls/hr 03/13/23 06:00 Cleocin In D5w IVPB 03/13/23 18:00 PREOP VIANNEY IV Miscellaneous Supplies 1 each 03/13/23 06:00 Iv Access IV 04/11/23 23:59 DIRECTED VIANNEY Sodium Chloride 0 ml 03/13/23 06:00 Normal Saline Flush 10 Ml Syr IV 04/11/23 23:59 PRN PRN Sodium Chloride 0 ml 03/13/23 06:00 Normal Saline 10 Ml Vial IJ 04/11/23 23:59 DIRECTED PRN Sterile Water 0 ml 03/13/23 06:00 Water,Injection,Sterile 10 Ml Vial IJ 04/11/23 23:59 DIRECTED PRN PFSH Active Problems Active Problems: Problem Status Onset Code Tinnitus H93.19 Trochanteric bursitis of left hip M70.62 Nausea & vomiting R11.2 Hypertrophy of inferior nasal turbinate J34.3 Acute effusion of right ear H65.191 Sensorineural hearing loss of both ears H90.3 Osteoarthritis of left knee M17.12 Femoroacetabular impingement of left hip M25.852 Arthritis of left hip M16.12 Arthrofibrosis of total knee arthroplasty T84.82XA Medical History Medical History Cyclical vomiting Dehydration Diverticulosis Elevated LFTs Hematuria Nausea and vomiting in adult ZO (obstructive sleep apnea) PONV (postoperative nausea and vomiting) Postmenopausal atrophic vaginitis Uterine fibroid Vertigo of central origin Medical History Comments:: Per pt. states it is IMPERATIVE that she not recieve any narcotics whatsoever pt. states she gets extremley sick Surgical History Surgical History H/O esophagogastroduodenoscopy H/O nasal septoplasty History of arthroscopy of both knees 3 right knee surgeries - scope, TKA, manipulation and scope 3 left knee scopes History of bilateral breast reduction surgery History of total right knee replacement Hx laparoscopic cholecystectomy Tobacco Smoking/Tobacco Use Status: Never Alcohol Alcohol Intake: current Alcohol intake frequency: holidays/special occasions only Substance Use Substance use: Never Substance use type: does not use Vital Signs and Lab Results Vital Signs Most Recent Vital Signs in EMR: Most Recent Vital Signs Temp Pulse Resp BP Pulse Ox 36.2 C L 80 20 127/74 97 03/13/23 08:55 03/13/23 08:55 03/13/23 08:55 03/13/23 08:55 03/13/23 08:55 Lab Results Blood Type / Crossmatch: No Data to Display Complete Blood Count: White Blood Count 7.65 10^3/uL (4.4-10.8) 03/05/23 09:12 Red Blood Count 5.11 10^6/uL (3.93-5.22) 03/05/23 09:12 Hemoglobin 15.5 g/dL (11.2-15.7) 03/05/23 09:12 Hematocrit 46.0 % (36.0-46.0) 03/05/23 09:12 Platelet Count 274 10^3/uL (130-400) 03/05/23 09:12 Complete Metabolic Panel: Sodium 139 mmol/L (136-145) 03/05/23 09:12 Potassium 4.3 mmol/L (3.5-5.1) 03/05/23 09:12 Chloride 102 mmol/L (98-107) 03/05/23 09:12 Carbon Dioxide 27.4 mmol/L (21.0-32.0) 03/05/23 09:12 BUN 23 mg/dL (7-18) H 03/05/23 09:12 Creatinine 1.1 mg/dL (0.55-1.02) H 03/05/23 09:12 Est GFR (CKD-EPI 2020) 57.88 (mL/min/1.73m2) 03/05/23 09:12 Calcium 9.5 mg/dL (8.5-10.1) 03/05/23 09:12 Glucose 81 mg/dL (74-106) 03/05/23 09:12 Liver Function Panel: No Data to Display Coagulation Panel: No Data to Display Cardiac Panel: No Data to Display Arterial Blood Gas: No Data to Display Venous Blood Gas: No Data to Display Pancreas Panel: No Data to Display Thyroid Panel: No Data to Display Infectious Disease: No Data to Display Blood Cultures: No Data to Display Toxicology Panel: No Data to Display Imaging and Studies Imaging and Studies Study information below may be from another EMR and interpreted by another provider. Please see original notes in EMR for more complete details. EKG Summary: Sinus rhythm...normal P axis, V-rate 60- 99 Anesthesia Assessment and Plan Anesthesia History Personal History: PONV Family History: No Family History of Anesthesia Complications Exercise Tolerance Exercise Tolerance: Metabolic Equivalents>4 Pertinent Negatives Pertinent Negatives: No Symptoms of GERD, No Major Cardiovascular Symptoms or Complaints, No Major Pulmonary Symptoms or Complaints and No History of CVA/TIA Cardiac & Pulmonary Exam Cardiac Exam: Normal S1/S2 Heart Sounds Pulmonary Exam: Clear Bilateral Breath Sounds Implantable Cardiac Device Does patient have a Pacemaker or an ICD?: No Airway Exam Known Difficult Airway: No Mallampati Class: 3 Mouth Opening: Narrow (< 3cm) Thyromental Distance: Less than 3 cm Neck Range of Motion: Full ROM Neck Circumference: Normal Teeth Condition: Generalized Poor Dentition ASA Classification ASA Score: ASA 2 Emergency Case?: No NPO Status NPO Status: NPO Clears >2 hours, Solids >8 hours Anesthesia Plan Resuscitation Status: Full Code Anesthesia Technique: Spinal Anesthesia Airway Planned: Natural Airway Monitors Used: Standard Monitors Preoperative Comments:: Requests no narcotics secondary to severe nausea.
[2023-03-13] MEDS: Lactated Ringers 1,000 ML 80 ML IV (09:28)
--- NOTE | 2023-03-13 09:41 | DSE_ITS ---
Date of service: 03/13/23 Time of Service: 09:49 DS: Diagnosis Discharge Diagnosis (1) Femoroacetabular impingement of left hip: Status: Chronic Discharge Plan Disposition Patient Disposition: Home Condition: Good Discharge Details Reason For Visit: Left femoroacetabular impingement Attending Provider: Sekou Ontiveros Primary Care Provider: Thierry Jane Home Meds and New Rx's Prescriptions: New celecoxib [Celebrex] 200 mg capsule 200 mg PO BID PRNQty: 60 0RF Rx Instructions: Take one tablet twice daily for pain and inflammation aspirin 81 mg tablet,delayed release (DR/EC) 81 mg PO BID 30 Days Qty: 60 0RF tramadol 50 mg tablet 50 mg PO Q6H PRN (Reason: severe postoperative pain) Qty: 12 0RF Rx Instructions: Take one tablet up to every 4 hours as needed for severe pain acetaminophen 500 mg tablet 1,000 mg PO Q8H PRN Qty: 90 0RF Rx Instructions: Take two tablets up to every 8 hours as needed for pain dexamethasone 4 mg tablet 4 mg PO DAILY Qty: 2 0RF Rx Instructions: Take one tablet once daily for two days docusate sodium [Colace] 100 mg capsule 100 mg PO BID Qty: 30 0RF ondansetron HCl 4 mg tablet 4 mg PO Q6H PRNQty: 30 0RF Rx Instructions: Take one tablet up to every 6 hours as needed for severe postoperative nausea Continued promethazine 12.5 mg tablet 12.5 mg PO Q6H PRN (Reason: nausea and vomiting) Qty: 30 0RF omeprazole 20 mg capsule,delayed release(DR/EC) 40 mg PO DAILY aprepitant 125 mg capsule 125 mg PO .2xweekly Rx Instructions: administer 1 hour prior to chemotherapy on day 1 ondansetron HCl [Zofran] 4 mg tablet 4 mg PO Q8H Qty: 14 0RF meclizine 12.5 mg tablet 12.5 mg PO TID PRN (Reason: dizziness) Qty: 14 0RF Discontinued acetaminophen 500 mg tablet 1,000 mg PO TID Qty: 90 0RF ibuprofen 600 mg tablet 600 mg PO TID PRN (Reason: pain) Qty: 90 0RF Discharge Instructions Additional Instructions: Total Hip Discharge Instructions Activity: The most important activity is to walk. You should try to take short walks a few times a day. You have no restrictions on movement or positioning, but do not try to force what you do. You will find some stiffness and weakness with hip flexion (lifting your knee). Do not try to strengthen this too early, continue to practice walking and stairs and this will come. - Outpatient physical therapy can be helpful to help return you to a normal gait and improve your flexibility and strength. This can start around 2 weeks. For some patients, it?s not necessary. Usually this is determined at the time of discharge or at the first post-operative visit. - You should wear the JENNIFER hose on both legs for 2 weeks. Dressing: Keep the surgical dressing in place for at least one week. After the first week it may be removed and replace with light gauze and tape or nothing. It may get wet after 3 days but avoid soaking the dressing. If it gets wet, just lightly pat dry. It is important to always keep some gauze between skin folds, especially when you are sitting. Spend some time with the wound exposed when you are lying flat as the incision does wrinkle onto itself. Medications: - You should take Tylenol and an anti-inflammatory Celebrex as your primary pain control medications. If the Celebrex is too expensive or not covered, please call the office for another alternative (Advil/Ibuprofen or Naproxen/Aleve). - You have been prescribed a stronger pain medication Tramadol for breakthrough pain, take as needed as prescribed. - You have been prescribed Zofran to take as needed for postoperative nausea. - You take a stomach acid reduction agent Omeprazole at baseline - continue with this to help reduce stomach acid and reflux. - You have also been prescribed Decadron to help with post-operative nausea and pain. You will take this for two days starting tomorrow. - You will be taking Aspirin 81mg twice a day for DVT prevention unless instructed otherwise. - If you have constipation you should take Colace (which has been prescribed) or Miralax (which is available [id number]). It takes most people 3-4 days to have a bowel movement. Follow-up: 2 weeks If you have any acute concerns or questions, please do not hesitate to contact the office at [phone]. You may contact Dr. Ontiveros with any questions after hours through the hospital at [phone] or on his cell phone at [phone]. Stand Alone Forms: Anesthesia Discharge InstRosa, Ghanshyam Polanco (DSU) Referrals: Sekou Ontiveros MD [ [facility] STAFF PHYSICIAN] - 03/26/23 9:45 am Equipment/Supplies: Walker Activity:: Elevate Remove Dressings/Wound Care:: Do Not Remove Shower/Bathe:: Cover Diet:: As Tolerated DS: Summary Time Spent with Patient providing and/or coordinating discharge services: Less than 30 minutes Status at Discharge Functional status at discharge: uses cane/walker Overall status at discharge: patient is progressing back to baseline Mental Status: mental status grossly normal Speech and Movement: speech and movement normal Mood: congruent mood Affect: normal affect Exam Psych Mental Status: mental status grossly normal Speech and Movement: speech and movement normal Mood: congruent mood Affect: normal affect DS: Data Vitals/I&O Vitals and I&O: Vital Signs Temperature 97.2 F L 03/13/23 08:55 Pulse 80 03/13/23 08:55 Pulse Rhythm Regular 03/13/23 08:55 Respiratory Rate 20 03/13/23 08:55 Respiratory Depth Normal 03/13/23 08:55 Blood Pressure 127/74 03/13/23 08:55 Pulse Oximetry 97 03/13/23 08:55 Oxygen Delivery Method Room Air 03/13/23 08:55 Oxygen Flow Rate 0 03/13/23 08:55 Pain Level 0 03/13/23 08:55 Intake & Output 03/12/23 03/12/23 03/13/23 11:59 23:59 11:59 Weight 206 lb 5.643 oz Other: Voiding Methods Toilet PFSH All Active Problems Tinnitus (Acute) Trochanteric bursitis of left hip (Acute) Nausea & vomiting (Acute) Hypertrophy of inferior nasal turbinate (Acute) Acute effusion of right ear (Acute) Sensorineural hearing loss of both ears (Acute) Right ear Osteoarthritis of left knee (Acute) Femoroacetabular impingement of left hip (Chronic) Arthritis of left hip (Acute) Arthrofibrosis of total knee arthroplasty (Acute) RIGHT Medical History Cyclical vomiting Dehydration Diverticulosis Elevated LFTs Hematuria Nausea and vomiting in adult ZO (obstructive sleep apnea) PONV (postoperative nausea and vomiting) Postmenopausal atrophic vaginitis Uterine fibroid Vertigo of central origin Surgical History H/O esophagogastroduodenoscopy H/O nasal septoplasty History of arthroscopy of both knees 3 right knee surgeries - scope, TKA, manipulation and scope 3 left knee scopes History of bilateral breast reduction surgery History of total right knee replacement Hx laparoscopic cholecystectomy Social History Smoking/Tobacco Use Status: Never Smoking risk assessment performed?: Yes Alcohol Intake: current Alcohol Intake frequency: holidays/special occasions only Drug use: Never Substance use type: does not use Housing: house Current gender identity: female Do you feel safe at home: Yes (UNABLE TO ASSESS PRIVATELY) Do you feel safe in your relationship?: Yes Time Spent with Patient Time Spent with Patient: <45 minutes Time was spent: ordering medications,tests, procedures, referring, communicating with other health career consultant and care coordination
[2023-03-13] MEDS: CLINDAMYCIN 900 MG/50 ML BAG 50 MG IVPB (10:10)
[2023-03-13] MEDS: Bupivacaine 0.25% Pres-Free 30 ML VIAL (11:28)
[2023-03-13] MEDS: methylPREDNISolone ACETATE 80 MG/ML VIAL (11:30)
[2023-03-13] MEDS: Ketorolac 30 MG/ML VIAL IVP (11:48)
[2023-03-13] MEDS: LORazepam 2 MG/ML VIAL 0.5 MG IVP (11:59)
--- NOTE | 2023-03-13 13:45 | PT.INIE ---
Date of service: 03/13/23 Time of Service: 13:45 PT Notes Visit Reasons: Left femoroacetabular impingement Physical Therapy Day Surgery Initial Evaluation Date: 03/13/2023 Referring Doctor: CORINE Macdonald PT Orders: PT CONSULT: S/p Ortho Surgery WBAT on left LE with AD. Precautions: Patient Profile/Admitting Diagnosis: Flori is a 58-year-old female with femoral acetabular impingement and a degenerative joint disease of the left hip and status post left total anterior hip arthroplasty on postoperative day 0. PMHX: Medical History?(Updated 03/05/23 @ 08:22 by Rosanne Domingo) Cyclical vomiting Dehydration Diverticulosis Elevated LFTs Hematuria Nausea and vomiting in adult ZO (obstructive sleep apnea) PONV (postoperative nausea and vomiting) Postmenopausal atrophic vaginitis Uterine fibroid Vertigo of central origin Surgical History?(Updated 03/05/23 @ 08:22 by Rosanne Domingo) H/O esophagogastroduodenoscopy H/O nasal septoplasty History of arthroscopy of both knees 3 right knee surgeries - scope, TKA, manipulation and scope 3 left knee scopes History of bilateral breast reduction surgery History of total right knee replacement Hx laparoscopic cholecystectomy Social History/Home Situation: Lives in a private home with 3-4 steps to enter with rails on both sides. Works from home. Independent with all aspects of ADLs prior to surgery although lately had had difficulty performing mobility ADL performance due to left hip pain and needed to use SPC. Equipment Owned/DME: SPC Subjective: Reports burning sensation on the front and the side of the left hip at rest and with movement. Denies headache, chest pain, and lightheadedness throughout session. Objective: General Observation: Supine in bed. Mepilex Ag over surgical incision. TEDS to B legs. Mental Status: Alert and oriented x4 DS to be legs. Pain: 1?2/10 pain in the left hip at rest and with movement ROM: Right Lower Extremity: Hip flexion WFL. Hip abduction WFL. Knee flexion WFL. Ankle dorsiflexion WFL. Ankle plantarflexion WFL. Left Lower Extremity: Hip flexion WFL. Hip abduction WFL. Knee flexion WFL. Ankle dorsiflexion WFL. Ankle plantarflexion WFL. Strength: Right Lower Extremity: Hip flexors 5/5. Hip abductors 5/5. Knee flexors 5/5. Knee extensors 5/5. Ankle dorsiflexors 5/5. Ankle plantarflexors 5/5. Left Lower Extremity:Hip flexors 4/5. Hip abductors 4/5. Knee flexors 5/5. Knee extensors 4 intact as to pain and light pressure in bilateral lower extremities /5. Ankle dorsiflexors 5/5. Ankle plantarflexors 5/5. Sensation: Intact as to pain and light pressure in bilateral lower extremities Bed Mobility/Transfers: Supine to sit standby assist with cues provided to use right hand for support as needed Sit to stand contact-guard assist, minimal cues provided to push off from edge of bed for safety Stand to sit standby assist, minimal cues provided to reach behind for armrests of chair for safety Bed to chair standby assist, minimal cues provided to reach behind for armrests of chair for safety Gait: Facilitated safe and correct performance of level surface ambulation using front wheeled walker with patient requiring minimal verbal cueing for limb advancement and heel-toe gait pattern, AD management, and movement sequence with distance covered of 150 feet requiring standby assist. Reported increased burning sensation in the anterolateral left hip and thigh. Weight bearing as tolerated on the left LE. Stairs: Guided patient with safe navigation of 6 x 4 inch steps and 4 x 6 inch steps while holding onto bilateral rails with step to gait pattern with minimal cues provided for safe and correct technique and for increased hip flexion on the left during a ascent. Balance: Static Sitting: Normal Dynamic Sitting: Normal Static Standing: Fair Dynamic Standing: Fair Special Tests: Mobility Limitations Standardized Measure [facility] AM-PAC 6 clicks Basic Mobility Inpatient Short Form: Raw Score: 23 CMS Score: 11% deficit Informed Consent/Education: Patient instructed in purpose of PT consult. Packet containing VINCENT exercise protocol has been given to patient. THERA ACT: Trained patient with correct performance of exercises below to maximize motor control, joint flexibility, soft tissue extensibility of the L hip musculature to facilitate return to independent functional mobility performance. Access Code: [email or web address] URL: [email or web address] Date: 03/13/2023 Prepared by: Lora Calvin Exercises - Gluteal Sets - 1 x daily - 7 x weekly - 1 sets - 10 reps - 5 hold - Supine Heel Slide - 1 x daily - 7 x weekly - 1 sets - 10 reps - 5 hold - Supine Ankle Pumps - 1 x daily - 7 x weekly - 1 sets - 10 reps - 5 hold - Seated March - 1 x daily - 7 x weekly - 1 sets - 10 reps - 5 hold - Seated Long Arc Quad - 1 x daily - 7 x weekly - 1 sets - 10 reps - 5 hold Assessment: Patient requires the use of a front wheeled walker for all mobility ADL performance to maximize independence and reduce fall risk. Patient presents with clinical signs and symptoms consistent with current/admitting diagnoses that have resulted to mobility limitations, gait instability, generalized weakness, and impairment of motor control as demonstrated by the following impairment level findings: 1. Decreased strength to left hip major muscle groups 2. Impaired standing balance Impairments are contributing to the following functional limitations: 1. Inability to safely ambulate without assistive device 2. Increase completion time for mobility ADL performance 3. Increased fall risk Patient is assessed as a m 20 7162oderate complexity based on the following: History: 58-year-old female with impairment level findings, functional limitations, and past medical history as indicated above Examination: Demonstrable impairment in strength, balance, and mobility level with underlying impairments and functional limitations as documented above Presentation: Evolving Decision Makin moderate complexity Goals: N/A. PT evaluation and 1-2 treatment sessions only for functional mobility training using recommended AD and for HEP instruction. Plan of Care/Treatment Plan: N/A. PT evaluation and 1-2 treatment session only for functional mobility training using recommended AD and for HEP instruction. DISCHARGE RECOMMENDATIONS: Home when medically cleared by orthopedic surgeon. Recommend outpatient PT services in order to optimize functional mobility outcomes and facilitate return to independent community ambulation without an assistive device. TREATMENT CODE/TIME: 05275 x 20 minutes for 1 unit, 57919 x 20 minutes for 1 unit beginning at 13:45 PM. Thank you for the opportunity to participate in the care of this patient. Lora Calvin PT, DPT, CLT [facility] [place], [place]
--- NOTE | 2023-03-13 14:45 | W.ANESPOSTOP ---
Postoperative Evaluation Date, Time and Location Date Performed: 03/13/23 Time Performed: 14:45 Patient Location: Day Surgery Unit Vital Signs Most Recent Imported Vital Signs: Most Recent Vital Signs Temp Pulse Resp BP Pulse Ox 36.5 C 81 16 118/82 99 03/13/23 13:12 03/13/23 13:12 03/13/23 13:12 03/13/23 13:12 03/13/23 13:12 Pain Score Most Recent Pain Score: Most Recent Pain Score Pain Level 2 03/13/23 13:12 Assessment Mental Status: Awake (Alert & Oriented to Patient Baseline) Airway and Respiratory Function: Patent airway with normal (patient baseline) respiratory exam Cardiovascular Function: Hemodynamically Stable Hydration Status: Adequately Hydrated Nausea & Vomiting: No Nausea or Vomiting Pain: Pain is tolerable per patient Peripheral Nerve Block: Patient did not receive a nerve block
--- NOTE | 2023-03-13 17:54 | W.PM.OP ---
Date of service: 03/13/23 Time of Service: 10:30 Operative Note Operative Note DATE OF PROCEDURE: 03/13/23 PRE-OP DIAGNOSIS: Left Hip Femoroacetabular Impingement and Osteoarthritis Left Knee Osteoarthritis POST-OP DIAGNOSIS: same PROCEDURE: Left Anterior Total Hip Arthroplasty with Intraoperative Navigation Left Knee Injection SURGEON: Sekou Ontiveros DREDGE CAPTAIN: Rosanne Domingo ANESTHESIA TYPE: Spinal Refer to Anesthesia Record ESTIMATED BLOOD LOSS: 100 PATHOLOGY: none sent TOURNIQUET TIME: 0 COMPLICATIONS: None Patient was transported to: PACU Patient's condition: stable Implants: 1. Depuy [place] Acetabular Component, 50mm 2. Depuy Acetabular Liner, [id number] 3. Depuy Actis Standard Collared Femoral Stem, Size 4 4. Depuy Altrx Ceramic Femoral Head, Size 32+5mm Indications: I have seen Amy in clinic for symptoms of hip arthritis, confirmed with radiographic findings. She has exhausted nonoperative methods and was having significant limitations in daily function and desired better function and less pain. I discussed the technical details of a hip replacement. I explained the risks of the procedure to include, but not limited to, bleeding, infection, pain, stiffness, fracture, damage to nerves and vessels, damage to muscles and tendons, loosening, instability, leg length inequality, need for repeat procedure, blood clot and cardiopulmonary demise. Despite these risks, Amy elected to proceed. She also has worsening pain of the left knee with known arthritis and elected to proceed with a knee injection at the same time. Findings: There was notable superior femoral chondromalacia along with some wear of the superior-lateral aceabulum. Procedure Description: Amy was greeted in the preoperative holding area where the correct side was identified and marked. The consent was reviewed with the patient and signed. The history and physical was updated. All questions were answered. She was taken back to the operating room. A spinal anesthestic was then administered. The feet were wrapped with cast padding and Coban and then placed into the boot liners and then into the boots. Care was taken to protect the skin and make sure the heels were fully down and the boots were stable. The patient was then positioned onto the HANA table. Both legs were held in a neutral position. SCDs were applied. The patient was then slid down onto a peroneal post. Prophylactic antibiotics in the form of Cefazolin were administered. 1g of Tranxemic Acid was given intravenously within 30 minutes of incision. The left leg was then prepped with Chloraprep and draped in a standard fashion. A second prep with Chloraprep was performed prior to placement of a shower-curtain type drape with Iodine impregnated skin protection. A timeout to confirm correct identity, side and site, procedure, allergies, anesthesia, and medical concerns was performed. An obliquely oriented incision was made starting lateral to the ASIS and running distal over the Tensor Fascia Patience (TFL) muscle belly toward the fibular head, approximately 10cm. The skin and soft tissue was dissected sharply, through Josh?s fascia, and to the fascia of the TFL. With the fascia and superior border of the IT band identified, the fascia was incised with a new knife just above any perforators from the IT band. The TFL muscle belly was bluntly dissected away from the fascia and moved laterally. The fat between TFL and rectus was identified to ensure the dissection was not within the TFL. Blunt dissection created space between abductors and the capsule and retractor was placed over the lateral femoral neck. The fibers of the rectus femoris tendon were identified and these were freed from the anterior capsule. A second cobra retractor was placed around the medial femoral neck. The TFL was further retracted laterally to show the deep fascia. Careful dissection through this layer identified three main crossing vessels of the lateral femoral circumflex. These were cauterized in multiple locations and then cut without any noticeable bleeding. The TFL was further released bluntly from the deep fascia to expose anterior hip capsule and fat The Sunny orthopaedic retractor was then placed beneath the TFL and against sartorius and medial soft tissues to protect and retract the soft tissues. A T-capsulotomy was then performed starting at the superior lateral acetabulum and moving distally to the intertrochanteric ridge. These capsular flaps were tagged with a No. 1 Ethibond and elevated from within. The capsular flaps were released to the shoulder of the lateral neck and to the lesser trochanter to give excellent visualization of the proximal femur. A neck osteotomy was performed using an oscillating saw based on preoperative templates. This cut started in the shoulder and of the lateral neck and exited medially. The saw was at all times directed medially to avoid injury to the greater trochanter. Gross traction was applied to the leg and the osteotomy opened. The femoral head was removed with a corkscrew, making sure to protect the TFL on its exit. Traction was released after head removal. This was measured on the back table to determine the starting reamer size. Portions of the rectus obscuring visualization were minimally elevated off the superior acetabulum. An anterior retractor was placed over the anterior wall between capsule and labrum and attached to the Gripper retraction system. The femur was rotated to 90 degrees and medial capsule was fully released until the lesser trochanter was palpable and visible; the femur was returned to 30 degrees. A posterior retractor was placed similarly between capsule and labrum. This provided excellent visualization. The contents of the cotyloid fossa were removed with electrocautery and the labrum was removed with a knife. There was significant chondromalacia of the superior acetabulum. Acetabular reaming began with a 44mm reamer. This first reaming was directed anterior to posterior and medial to get down to the true floor. This was inspected and reamed until the true floor was reached. The anterior retractor was then released and entry and exit was provided by traction on the capsular flaps. I then reamed sequentially up to a 50mm reamer where good fit was obtained. The larger reamers were oriented based on anatomical reference of the anterior and lateral martinez to ensure proper abduction and anteversion. Positioning and size was confirmed with the fluoroscopy. A 50mm Depuy [place] acetabular component was selected. The acetabulum was reamed around the periphery with the selected acetabular size to prevent a rim fit. The deep tissues were irrigated. The acetabular component was then impacted in a position of about 40-45 degrees of abduction and 15-20 degrees of anteversion, using the patient?s anatomy as the ultimate landmark. Fluoroscopy was used to confirm this. There was excellent flexographic printing press operator of the acetabular component and the inserting handle was removed. The acetabular liner, Depuy [id number] polyethylene liner, was inserted and lined up with the tines of the acetabular component. There was no soft tissue interposition. The liner was then impacted into position and confirmed to be well-seated. A portion of the gilmer-articular cocktail was then injected around the acetabulum into the capsule and periosteum. This cocktail consisted of 123mg of Ropivacaine, 0.25mg of Epinephrine, 0.04mg of Clonidine, and 15mg of Ketorolac, diluted to 50cc. The leg was rotated to 120 degrees. Any remaining medial capsule was released until the lesser trochanter was easily palpable. A retractor was placed medially. The lateral capsule was further released into the shoulder to allow access to the greater trochanter. A Quintanilla retractor was placed over the greater trochanter which allowed the trochanter to flip in front of the capsule for excellent exposure. The leg was brought down into maximal extension and 20 degrees of adduction while ensuring there was no impingement on the acetabulum. Any remnant capsule within the trochanter was released. Piriformis and obturator externis were identified and protected. There was excellent access to the proximal femur. The lateral neck remnant was removed with a rongeur. A blunt canal probe was used to identify the canal and trajectory for later broaching. A box osteotome initiated the broach course. A small curved rasp and a curved curette were used to work laterally. Broaching then began with a starter Actis broach. This was inserted manually around the trochanter and into the canal before mallet blows. The broach was seated to a few millimeters below the cut level based on the neck cut and the preoperative template. Sequential broaching was continued with the Quinceese pneumatic broaching device until a tight fit was obtained with good rotational control of the femur. A trial standard neck was inserted along with a +5 trial head. The leg was brought out of extension and adduction and then reduced with traction and internal rotation. The leg was stable anteriorly in a position of 30 degrees of extension and 90 degrees of external rotation. Fluoroscopy was used to ensure there was no fracture and the stem was seated well. Leg lengths were checked with an AP pelvis and pelvic reference points. Wiser (formerly [employer]) navigation system was used to confirm appropriate positioning and leg length and offset. Once content with the desired offset and leg lengths, the leg was brought back into extension, external rotation and adduction. The periosteum and surrounding tissue was injected with remaining portion of the gilmer-articular cocktail. The proximal femur was irrigated as well as the deep tissues. The Ping [employer] Actis standard collared stem, size 4, was then manually inserted into the proximal femur making sure to control rotation. It was then malleted into position with light blows, giving breaks to allow bone expansion and decrease risk of fracture. The selected Depuy Altrx Ceramic Head, size 32+5mm, was then placed onto the clean and dry trunnion and secured with impaction onto the tapered fit. The leg was brought back out of extension and adduction and reduced with traction and internal rotation. Stability was confirmed with no shuck at 90 degrees of external rotation and 30 degrees of extension. No impingement through range of motion arc. Final x-ray images were obtained with fluoroscopy to confirm adequate positioning and no intraoperative fracture. The deep tissues were thoroughly irrigated with Surgiphor, betadine solution. This was allowed to sit in the wound for 3 minutes before being thoroughly irrigated out with normal saline. The capsule was then reapproximated with the previously placed Ethibond sutures. The TFL fascia was finally closed with a No. 2 Stratafix, barbed suture. Deep tissues were then reapproximated with 0 Vicryl and a running 2-0 Vicryl. The skin was closed with a running 4-0 Monocryl in a subcuticular fashion. This was reinforced with skin glue. A Mepilex silver dressing was applied. The superolateral patella was marked and the skin was prepped with alcohol. Using a 22g needle the joint was entered and injected with 5cc of 0.25% Bupivacaine and 80mg of Depo-Medrol. Hemostasis was acheieved and a bandaid applied. At the end of the case, all counts were correct. Amy was transferred to the hospital bed without difficulty and suffering no apparent complication. Amy has a good prognosis. Physical therapy will start today and without restrictions, weight-bearing as tolerated. Aspirin 81mg BID will be used for DVT prophylaxis.
== END 2023-03-13 14:50 | disposition home or self-care (01) ==
PROVIDERS: PCP Physician Assistant Medical; Visit Provider Student in an Organized Health Care Education/Training Program
PROC: (CPT 27130; principal; 2023-03-13 11:00)
DX: M16.12 Unilateral primary osteoarthritis, left hip (principal); M70.62 Trochanteric bursitis, left hip; M25.852 Other specified joint disorders, left hip; G47.33 Obstructive sleep apnea (adult) (pediatric)
CPT/HCPCS: 27130; 20985; 97162; 97530; 73501; J1040; J1100; J1885; J2001; J2060; J2250; J2405

== ENCOUNTER 2023-03-26 10:28 | Outpatient (CLI) | payer OTHER, SELFPAY ==
--- NOTE | 2023-03-26 09:45 | DI.RAD_ITS ---
Exam(s) XR HIP LT COMPLETE AP PELVIS EXAM: XR HIP LT COMPLETE AP PELVIS CLINICAL HISTORY: 1st post op S/P L VINCENT. TECHNIQUE: 2D digital imaging was performed. COMPARISON: CR XR HIP LT COMPLETE AP PELVIS from 02/16/2023 FINDINGS: 3 views No evidence of fracture. Left hip prosthesis appears satisfactory with no fracture or loosening evid ent. No evidence of osteomyelitis. Calcified uterine fibroids noted. IMPRESSION: Satisfactory appearance of left hip prosthesis. DATA REPOSITORY: RADIATION DOSE DELIVERED:
== END 2023-03-26 10:29 | disposition home or self-care (01) ==
LOC: DIORS 10:29
PROVIDERS: PCP Physician Assistant Medical; Visit Provider Student in an Organized Health Care Education/Training Program
DX: Z96.642 Presence of left artificial hip joint (principal); Z47.1 Aftercare following joint replacement surgery
CPT/HCPCS: 73502

== ENCOUNTER 2023-10-15 15:05 | Outpatient (CLI) | payer OTHER, SELFPAY ==
--- NOTE | 2023-10-15 11:15 | DI.RAD_ITS ---
Exam(s) XR KNEE RT 2V AP,LAT EXAM: XR KNEE RT 2V AP,LAT CLINICAL HISTORY: RIGHT KNEE PAIN. TECHNIQUE: 2D digital imaging was performed. Two images were obtained. AP and lateral views were ob tained. COMPARISON: CR XR KNEE RT 3V AP,LAT,NASRA from 07/21/2021 FINDINGS: BONES: There are stable post operative changes of a right total knee replacement present. No fractur e or dislocation. JOINTS: The orthopedic hardware is in good position. No evidence of hardware loosening. Small joint effusion. SOFT TISSUE: Normal. IMPRESSION: Stable right total knee replacement. DATA REPOSITORY: RADIATION DOSE DELIVERED:
== END 2023-10-15 15:06 | disposition home or self-care (01) ==
LOC: DIORS 15:05
PROVIDERS: PCP Physician Assistant Medical; Visit Provider Student in an Organized Health Care Education/Training Program
DX: Z96.651 Presence of right artificial knee joint (principal); Z47.1 Aftercare following joint replacement surgery
CPT/HCPCS: 73560

== ENCOUNTER 2023-11-13 09:16 | Outpatient (REF) | payer OTHER, SELFPAY | END 2023-11-13 09:17 | disposition home or self-care (01) | LOC: LBN 09:16 | PROVIDERS: PCP Physician Assistant Medical; Visit Provider Physician Assistant | DX: N39.0 Urinary tract infection, site not specified (principal) | CPT/HCPCS: 87077; 87086; 87186 ==

== ENCOUNTER → 2023-12-12 00:24 | Outpatient (CLI) | payer BC, OTHER, SELFPAY ==
--- NOTE | 2023-12-12 06:45 | DI.NM_ITS ---
Exam(s) NM BONE SCAN 3 PHASE EXAM: AR BONE SCAN 3 PHASE CLINICAL HISTORY: right knee pain,h/o total knee replacement,z96.651. TECHNIQUE: Injected Dose: A 9.2 mCi Tc-99m MDP COMPARISON: CR XR KNEE LT 3V AP,LAT,NASRA from 03/07/2021 AR NM BONE SCAN 3 PHASE from 08/19/2021 CR XR KNEE RT 2V AP,LAT from 10/15/2023 FINDINGS: Perfusion: Symmetric. Blood Pool: Symmetric. Delayed: Slightly again increased activity adjacent to the tibial component of the prosthesis which a ppears unchanged from the prior exam. There is increased activity in the left knee, likely reflectin g severe degenerative changes. This has worsened compared with the prior study. IMPRESSION: Stable appearance of mildly increased activity around the right knee prosthesis, making loosening les s likely. DATA REPOSITORY:
== END ==
PROVIDERS: PCP Physician Assistant Medical; Visit Provider Student in an Organized Health Care Education/Training Program
DX: Z96.651 Presence of right artificial knee joint (principal)
CPT/HCPCS: 78315

== ENCOUNTER 2024-04-14 15:41 | Outpatient (CLI) | payer BC, OTHER, SELFPAY ==
--- NOTE | 2024-04-14 13:00 | DI.RAD_ITS ---
Exam(s) XR HIP LT AP LAT ONLY EXAM: XR HIP LT AP LAT ONLY INDICATION: ANNUAL F/U L VINCENT. COMPARISON: CR XR HIP LT COMPLETE AP PELVIS from 03/26/2023 TECHNIQUE: 2D digital imaging was performed. Two views. FINDINGS: Stable alignment of hip prosthesis. No surrounding lucencies. DATA REPOSITORY: RADIATION DOSE DELIVERED:
== END 2024-04-14 15:42 | disposition home or self-care (01) ==
PROVIDERS: PCP Physician Assistant Medical; Visit Provider Student in an Organized Health Care Education/Training Program
DX: Z96.642 Presence of left artificial hip joint (principal); Z47.1 Aftercare following joint replacement surgery
CPT/HCPCS: 73502

== ENCOUNTER 2024-07-15 18:19 | Outpatient (REF) | payer BC, OTHER, SELFPAY ==
[2024-07-15 19:42] LABS: Hemoglobin A1C 5.3 % (<5.7)
[2024-07-15 19:58] LABS: ALT 41 U/L (14-59); AST 32 U/L (15-37); Alkaline Phosphatase 68 U/L (46-116); Anion Gap 7.6 mmol/L (3-11); BUN 27 mg/dL (7-18); Bilirubin, Total 0.32 mg/dL (0.2-1.0); CO2 28.4 mmol/L (21.0-32.0); Calcium 9.7 mg/dL (8.5-10.1); Calculated LDL 179 mg/dL (<100); Chloride 106 mmol/L (98-107); Cholesterol 270 mg/dL (<200); Estimated GFR 64.49 (mL/min/1.73m2); Glucose 101 mg/dL (74-106); HDL Cholesterol 63 mg/dL (40-60); Potassium 4.6 mmol/L (3.5-5.1); Sodium 142 mmol/L (136-145); Total Protein 8.2 g/dL (6.4-8.2); Triglyceride 144 mg/dL (<150); Vitamin D 25 Total 16.3 ng/mL (30-100)
== END 2024-07-15 18:20 | disposition home or self-care (01) ==
LOC: NCHCN 18:19
PROVIDERS: PCP Physician Assistant Medical; Visit Provider Physician Assistant Medical
DX: Z13.6 Encounter for screening for cardiovascular disorders (principal); Z13.1 Encounter for screening for diabetes mellitus; G89.29 Other chronic pain
CPT/HCPCS: 80053; 80061; 82306; 83036

== ENCOUNTER 2024-08-15 00:04 | Outpatient (CLI) | payer BC, OTHER, SELFPAY ==
--- NOTE | 2024-08-15 | DI.MAMMO_ITS ---
Exam(s) MAMMO SCREENING EXAM: MAMMO SCREENING CLINICAL HISTORY: Screening, Z12.31 TECHNIQUE: Mammograms were interpreted according to the usual protocol including computer analysis w [email or web address] CAD system, tomosynthesis and C-view imaging. COMPARISON: 2020 FINDINGS: The breasts are composed of heterogeneously dense fibroglandular densities, Breast Density category C . No suspicious masses or suspicious microcalcifications are seen. No skin thickening or abnormal axillary lymph nodes are seen. There has been no significant change from prior exams. IMPRESSION: BI-RADS Category 1, Negative mammogram. Yearly screening mammography is recommended. Breast Density Category C, heterogeneously Dense. The mammogram demonstrates the patient's breast tissue is dense. Dense breast tissue is very common a nd is not abnormal but dense breast tissue can make it harder to find cancer on a mammogram. Also, de nse breast tissue may increase breast cancer risk. This information about the result of the mammogram report was provided to the patient to raise their awareness. Use this report when you speak with the patient about their risks for breast cancer, which includes their family history. At that time, you may recommend additional screening tests (Ultrasound or MRI) as they might be useful based on their r isk. A negative radiographic report should not delay biopsy if a dominant or clinically suspicious mass is present. Up to ten percent of cancers are not identified on mammography. A negative report may reinforce clinical impression. Adenosis and dense breasts may obscure an underlying neoplasm. False positive reports average 6 to 10%.
== END 2024-08-15 00:24 ==
LOC: DI 00:04
PROVIDERS: PCP Physician Assistant Medical; Visit Provider Physician Assistant Medical
DX: Z12.31 Encounter for screening mammogram for malignant neoplasm of breast (principal); R92.333 Mammographic heterogeneous density, bilateral breasts
CPT/HCPCS: 77063; 77067

== ENCOUNTER 2024-11-03 15:35 | Outpatient (REF) | payer BC, OTHER, SELFPAY ==
[2024-11-03 19:33] LABS: Anion Gap 8.6 mmol/L (3-11); BUN 21 mg/dL (7-18); CO2 28.4 mmol/L (21.0-32.0); CREATININE 0.6 mg/dL (0.55-1.02); Calcium 9.5 mg/dL (8.5-10.1); Chloride 102 mmol/L (98-107); Estimated GFR 102.69 (mL/min/1.73m2); Glucose 107 mg/dL (74-106); Potassium 4.5 mmol/L (3.5-5.1); Sodium 139 mmol/L (136-145); Vitamin B12 404 pg/mL (193-986); Vitamin D 25 Total 23 ng/mL (30-100)
[2024-11-03 20:04] LABS: COMMENT (LAB VIEW ONLY) 26.89 mg/dL; Microalb ug/mg Crea 6.7 ug/mg Cr
== END 2024-11-03 15:36 | disposition home or self-care (01) ==
LOC: NCHCN 15:35
PROVIDERS: PCP Physician Assistant Medical; Visit Provider Physician Assistant Medical
DX: E66.9 Obesity, unspecified (principal); N18.9 Chronic kidney disease, unspecified; E55.9 Vitamin D deficiency, unspecified
CPT/HCPCS: 80048; 82306; 82043; 82570; 82607; 83735